=== PATIENT | female | born 1960 | race Caucasian/White ===

== ENCOUNTER → 2017-10-01 08:03 | Outpatient (CLI) | payer OTHER, SELFPAY ==
--- NOTE | 2017-10-01 | DI.MG.S_ITS ---
BILATERAL DIGITAL SCREENING MAMMOGRAM 3D/2D WITH CAD: 10/01/2017 CLINICAL: Routine screening. Family history of breast cancer. Comparison is made to exams dated: 09/28/2016 mammogram, 09/11/2016 mammogram - [facility], and 09/09/2014 mammogram - [facility]. The tissue of both breasts is heterogeneously dense. This may lower the sensitivity of mammography. Current study was also evaluated with a Computer Aided Detection (CAD) system. There are benign calcifications in the left breast. There also are biopsy clips in the left breast. No significant masses, calcifications, or other findings are seen in either breast. There has been no significant interval change. IMPRESSION: BENIGN There is no mammographic evidence of malignancy. A 1 year screening mammogram is recommended. This exam was interpreted at Station ID: [id number]. NOTE: For mammograms, a report in lay terms will be sent to the patient. Approximately 15% of breast malignancies will not be visualized mammographically. In the management of a palpable breast mass, a negative mammogram must not discourage biopsy of a clinically suspicious lesion. Electronically Signed By: Vance mayer/lynn:10/01/2017 11:06:24 letter sent: Normal Exam ACR BI-RADS Category 2: Benign Finding(s) 3342F
== END ==
PROVIDERS: PCP Family Medicine; Visit Provider Family Medicine
DX: Z12.31 Encounter for screening mammogram for malignant neoplasm of breast (principal); Z80.3 Family history of malignant neoplasm of breast
CPT/HCPCS: 77063; 77067

== ENCOUNTER → 2018-05-09 13:40 | Outpatient (CLI) | payer OTHER, SELFPAY ==
--- NOTE | 2018-05-09 13:41 | DI.RAD.S_ITS ---
PROCEDURE: XR CHEST 2V INDICATIONS: Cough, SOB TECHNIQUE: 2 views of the chest were acquired. COMPARISON: None. FINDINGS: Surgical changes and devices: None. Lungs and pleura: Mild hyperinflation. Lungs are clear. No pleural effusions or pneumothorax. Mediastinum: Mediastinal contours are normal. Heart size is normal. Bones and chest wall: No suspicious bony abnormalities. Soft tissues appear unremarkable. IMPRESSION: Mild hyperinflation. No acute cardiopulmonary disease. Dictated by: Tyree Adhikari M.D. on 05/09/2018 at 14:01 Approved by: Tyree Adhikari M.D. on 05/09/2018 at 14:02
== END ==
PROVIDERS: PCP Family Medicine; Visit Provider Registered Nurse
DX: R05 Cough (principal); R06.02 Shortness of breath
CPT/HCPCS: 71046; 87400

== ENCOUNTER → 2018-05-09 14:29 | Outpatient (CLI) | payer OTHER, SELFPAY | PROVIDERS: PCP Family Medicine; Visit Provider Registered Nurse | DX: R50.9 Fever, unspecified (principal) | CPT/HCPCS: 87400 ==

== ENCOUNTER → 2018-05-30 11:18 | Outpatient (CLI) | payer OTHER, SELFPAY ==
[2018-05-30 12:50] LABS: Thyroid Stimulating Hormone 0.88 uIU/mL (0.47-4.68)
== END ==
PROVIDERS: PCP Family Medicine; Visit Provider Family Medicine
DX: E03.9 Hypothyroidism, unspecified (principal)
CPT/HCPCS: 36415; 84443

== ENCOUNTER → 2018-10-04 08:43 | Outpatient (CLI) | payer OTHER, SELFPAY ==
--- NOTE | 2018-10-04 | DI.MG.S_ITS ---
BILATERAL DIGITAL SCREENING MAMMOGRAM 3D/2D WITH CAD: 10/04/2018 CLINICAL: Routine screening. Family history of breast cancer. Comparison is made to exams dated: 10/01/2017 mammogram - [facility], 10/27/2016 specimen, 10/27/2016 stereotactic biopsy - [facility], 09/28/2016 mammogram, 09/11/2016 mammogram - [facility], and 09/09/2014 mammogram - [facility]. The tissue of both breasts is extremely dense, which lowers the sensitivity of mammography. Current study was also evaluated with a Computer Aided Detection (CAD) system. There are redemonstrated biopsy clips in the left breast (with prior biopsy results being benign per chart review), with associated previously biopsied calcifications of the left breast. No significant masses, calcifications, or other findings are seen in either breast. IMPRESSION: There is no mammographic evidence of malignancy. A 1 year screening mammogram is recommended. This exam was interpreted at Station ID: [id number]. NOTE: For mammograms, a report in lay terms will be sent to the patient. Approximately 15% of breast malignancies will not be visualized mammographically. In the management of a palpable breast mass, a negative mammogram must not discourage biopsy of a clinically suspicious lesion. Electronically Signed By: Harjinder Calderon M.D. ecl/:10/04/2018 13:03:32 letter sent: Normal Exam ACR BI-RADS Category 2: Benign Finding(s) 3342F
== END ==
PROVIDERS: PCP Family Medicine; Visit Provider Family Medicine
DX: Z12.31 Encounter for screening mammogram for malignant neoplasm of breast (principal); Z80.3 Family history of malignant neoplasm of breast
CPT/HCPCS: 77063; 77067

== ENCOUNTER → 2019-05-28 06:57 | Outpatient (CLI) | payer OTHER, SELFPAY ==
[2019-05-28 08:23] LABS: Alanine Aminotransferase 32 IU/L (<35); Albumin 4.5 g/dL (3.5-5.0); Albumin Globulin Ratio 1.6 (1.0-2.8); Alkaline Phosphatase 64 U/L (38-126); Aspartate Aminotransferase 33 IU/L (14-36); Bilirubin Total 0.4 mg/dL (0.2-1.3); Blood Urea Nitrogen 15 mg/dL (7-17); Calcium 9.6 mg/dL (8.4-10.2); Carbon Dioxide 28 mmol/L (22-32); Chloride 104 mmol/L (98-107); Cholesterol 185 mg/dL (140-199); Estimated Glomerular Filt Rate > 60.0 mL/min (>60); Globulin 2.8 g/dL (1.7-4.1); Glucose 103 mg/dL (70-100); HDL Cholesterol 78 mg/dL (40-60); HEMOLYSIS < 15 (0-50); LDL Cholesterol Calculated 88 mg/dL (<100); Potassium 4.3 mmol/L (3.4-5.1); Sodium 141 mmol/L (137-145); Total Protein 7.3 g/dL (6.3-8.2); Triglycerides 94 mg/dL (35-150)
[2019-05-28 08:55] LABS: Vitamin D 25 Hydroxy (D3) 24.4 ng/mL (30.0-100.0)
[2019-05-28 09:03] LABS: Thyroid Stimulating Hormone 4.35 uIU/mL (0.47-4.68)
== END ==
PROVIDERS: PCP Family Medicine; Referring Provider Family Medicine; Visit Provider Family Medicine
DX: Z13.220 Encounter for screening for lipoid disorders (principal); E03.9 Hypothyroidism, unspecified; R79.89 Other specified abnormal findings of blood chemistry; E55.9 Vitamin D deficiency, unspecified
CPT/HCPCS: 36415; 80053; 80061; 82306; 84443

== ENCOUNTER → 2019-07-12 15:04 | Outpatient (CLI) | payer OTHER, SELFPAY | PROVIDERS: PCP Family Medicine; Visit Provider Nurse Practitioner | DX: R30.0 Dysuria (principal) | CPT/HCPCS: 87077; 87086; 87186 ==

== ENCOUNTER → 2019-07-19 14:14 | Outpatient (CLI) | payer OTHER, SELFPAY ==
[2019-07-19 15:48] LABS: Influenza A - CEPHEID Flu A NEGATIVE (NEGATIVE); Influenza B - CEPHEID Flu B NEGATIVE (NEGATIVE)
[2019-07-21 03:36] LABS: COVID19 Sendout Not Detected (Not Detected)
== END ==
PROVIDERS: PCP Family Medicine; Visit Provider Registered Nurse
DX: R05 Cough (principal); Z20.828 Contact with and (suspected) exposure to other viral communicable diseases; R50.9 Fever, unspecified
CPT/HCPCS: 87502; 87635

== ENCOUNTER → 2019-10-22 10:55 | Outpatient (CLI) | payer OTHER, SELFPAY ==
--- NOTE | 2019-10-22 | DI.MG.S_ITS ---
BILATERAL DIGITAL SCREENING MAMMOGRAM 3D/2D WITH CAD: 10/22/2019 CLINICAL: Routine screening. Family history of breast cancer. Comparison is made to exams dated: 10/04/2018 mammogram, 10/01/2017 mammogram, 09/11/2016 mammogram - [facility], and 09/09/2014 mammogram - [facility]. The tissue of both breasts is extremely dense, which lowers the sensitivity of mammography. Current study was also evaluated with a Computer Aided Detection (CAD) system. There are benign calcifications in the left breast. There also are biopsy clips in the left breast. No significant masses, calcifications, or other findings are seen in either breast. There has been no significant interval change. IMPRESSION: There is no mammographic evidence of malignancy. A 1 year screening mammogram is recommended. This exam was interpreted at Station ID: [id number]. NOTE: For mammograms, a report in lay terms will be sent to the patient. Approximately 15% of breast malignancies will not be visualized mammographically. In the management of a palpable breast mass, a negative mammogram must not discourage biopsy of a clinically suspicious lesion. Electronically Signed By: Miranda jain/lynn:10/22/2019 16:31:23 letter sent: Normal Exam ACR BI-RADS Category 2: Benign Finding(s) 3342F
== END ==
PROVIDERS: PCP Family Medicine; Referring Provider Family Medicine; Visit Provider Family Medicine
DX: Z12.31 Encounter for screening mammogram for malignant neoplasm of breast (principal); Z80.3 Family history of malignant neoplasm of breast
CPT/HCPCS: 77063; 77067

== ENCOUNTER → 2019-12-22 09:12 | Outpatient (CLI) | payer OTHER, SELFPAY | PROVIDERS: PCP Family Medicine; Visit Provider Nurse Practitioner | DX: R30.0 Dysuria (principal) | CPT/HCPCS: 87077; 87086; 87186 ==

== ENCOUNTER → 2020-04-15 14:31 | Outpatient (CLI) | payer OTHER, SELFPAY ==
[2020-04-15] MEDS: COVID-19 VACC(MODERNA-1)/PF 100 MCG/0.5 ML VIAL IM (14:36)
== END ==
PROVIDERS: PCP Family Medicine; Visit Provider Internal Medicine
DX: Z23 Encounter for immunization (principal)
CPT/HCPCS: 0011A; 91301

== ENCOUNTER → 2020-05-12 13:16 | Outpatient (CLI) | payer OTHER, SELFPAY ==
[2020-05-12] MEDS: COVID-19 VACC #2, MRNA(MOD) 100 MCG/0.5 ML VIAL IM (13:24)
== END ==
PROVIDERS: PCP Family Medicine; Visit Provider Internal Medicine
DX: Z23 Encounter for immunization (principal)
CPT/HCPCS: 0012A; 91301

== ENCOUNTER → 2020-07-28 11:30 | Outpatient (CLI) | payer OTHER, SELFPAY ==
[2020-07-28 12:14] LABS: Appearance Urine UA CLEAR; Bilirubin Urine UA NEGATIVE (NEGATIVE); Color Urine UA YELLOW; Glucose Urine UA NEGATIVE (Negative); Ketones Urine UA NEGATIVE (NEGATIVE); Leukocyte Esterase Urine UA 2+ (NEGATIVE); Nitrite Urine UA NEGATIVE (Negative); Occult Blood Urine UA 3+ (Negative); Protein Urine UA NEGATIVE (Negative); Specific Gravity Urine UA 1.015 (1.000-1.035); Urobilinogen Urine UA 0.2 E.U./dL (0.2)
[2020-07-28 12:20] LABS: Bacteria Urine Moderate (10-30); Culture Indicated Urine Specimen Cultured; RBC Urine 30-100/HPF (0-5/HPF); WBC Urine 10-30/HPF (0-5/HPF)
== END ==
PROVIDERS: PCP Family Medicine; Referring Provider Family Medicine; Visit Provider Family Medicine
DX: R30.0 Dysuria (principal); R35.0 Frequency of micturition
CPT/HCPCS: 81001; 87086

== ENCOUNTER → 2020-11-24 10:11 | Outpatient (CLI) | payer OTHER, SELFPAY ==
[2020-11-24 12:45] LABS: Thyroid Stimulating Hormone 1.36 uIU/mL (0.47-4.68)
== END ==
PROVIDERS: PCP Family Medicine; Referring Provider Family Medicine; Visit Provider Family Medicine
DX: E03.9 Hypothyroidism, unspecified (principal)
CPT/HCPCS: 36415; 84443

== ENCOUNTER → 2020-12-01 07:15 | Outpatient (CLI) | payer OTHER, SELFPAY ==
--- NOTE | 2020-12-01 07:16 | DI.US.S_ITS ---
PROCEDURE: US THYROID INDICATIONS: THYROID ENLARGMENT TECHNIQUE: Real-time scanning was performed of the thyroid gland, with image documentation. COMPARISON: None. FINDINGS: Right: Thyroid lobe measures 3.4 x 1.5 x 1.2 cm, and is homogeneous in echotexture. Left: Thyroid lobe measures 3.0 x 1.1 x 1.1 cm, and is homogenous in echotexture. Isthmus: 1.1 mm thick. IMPRESSION: Normal size thyroid without dominant nodule. ACR TI-RADS definitions and recommendations: TI-RADS 1 (benign): 0 points. FNA not needed. TI-RADS 2 (not suspicious): 2 points. FNA not needed. TI-RADS 3 (mildly suspicious): 3 points. * FNA if 2.5 cm or larger, follow up if 1.5 cm or larger (at 1, 3, and 5 years). TI-RADS 4 (moderately suspicious): 4-6 points. * FNA if 1.5 cm or larger, follow up if 1 cm or larger (at 1, 2, 3, and 5 years). TI-RADS 5 (highly suspicious): 7 points or more. * FNA if 1 cm or larger, follow up if 0.5 cm or larger (every year for 5 years). Dictated by: Miranda Lucas M.D. on 12/01/2020 at 10:25 Approved by: Miranda Lucas M.D. on 12/01/2020 at 10:26
== END ==
PROVIDERS: PCP Family Medicine; Referring Provider Family Medicine; Visit Provider Family Medicine
DX: E04.9 Nontoxic goiter, unspecified (principal)
CPT/HCPCS: 76536

== ENCOUNTER → 2020-12-30 17:12 | Outpatient (CLI) | payer OTHER, SELFPAY ==
--- NOTE | 2020-12-30 | DI.MG.S_ITS ---
BILATERAL DIGITAL SCREENING MAMMOGRAM 3D/2D WITH CAD: 12/30/2020 CLINICAL: Routine screening. Family history of breast cancer. Comparison is made to exams dated: 10/22/2019 mammogram, 10/04/2018 mammogram, and 10/01/2017 mammogram - [facility]. The tissue of both breasts is heterogeneously dense. This may lower the sensitivity of mammography. Current study was also evaluated with a Computer Aided Detection (CAD) system. There are benign calcifications in the left breast. There also are biopsy clips in the left breast. No significant masses, calcifications, or other findings are seen in either breast. There has been no significant interval change. IMPRESSION: BENIGN There is no mammographic evidence of malignancy. A 1 year screening mammogram is recommended. This exam was interpreted at Station ID: [id number]. NOTE: For mammograms, a report in lay terms will be sent to the patient. Approximately 15% of breast malignancies will not be visualized mammographically. In the management of a palpable breast mass, a negative mammogram must not discourage biopsy of a clinically suspicious lesion. Electronically Signed By: Miranda jain/lynn:12/31/2020 08:54:37 letter sent: Normal Exam ACR BI-RADS Category 2: Benign Finding(s) 3342F
== END ==
PROVIDERS: PCP Family Medicine; Referring Provider Family Medicine; Visit Provider Family Medicine
DX: Z12.31 Encounter for screening mammogram for malignant neoplasm of breast (principal)
CPT/HCPCS: 77063; 77067

== ENCOUNTER → 2021-02-16 18:30 | Outpatient (CLI) | payer OTHER, SELFPAY | PROVIDERS: PCP Family Medicine; Referring Provider Internal Medicine; Visit Provider Internal Medicine | DX: Z23 Encounter for immunization (principal) | CPT/HCPCS: 90471; 90686 ==

== ENCOUNTER → 2021-02-25 14:49 | Outpatient (CLI) | payer OTHER, SELFPAY ==
[2021-02-25] MEDS: COVID-19 VACC #3, MRNA(MOD) 50 MCG/0.25 ML VIAL IM (14:58)
== END ==
PROVIDERS: PCP Family Medicine; Visit Provider Internal Medicine
DX: Z23 Encounter for immunization (principal)
CPT/HCPCS: 0013A; 91301

== ENCOUNTER → 2021-04-10 14:50 | Outpatient (CLI) | payer OTHER, SELFPAY | PROVIDERS: PCP Family Medicine; Visit Provider Physician Assistant | DX: R30.0 Dysuria (principal) | CPT/HCPCS: 87077; 87086; 87186 ==

== ENCOUNTER → 2021-08-26 16:09 | Outpatient (CLI) | payer OTHER, SELFPAY ==
[2021-08-26 18:14] LABS: TSH w/ Reflex to FT4 1.96 uIU/mL (0.47-4.68)
== END ==
PROVIDERS: PCP Family Medicine; Referring Provider Family Medicine; Visit Provider Family Medicine
DX: E03.9 Hypothyroidism, unspecified (principal)
CPT/HCPCS: 36415; 84443

== ENCOUNTER → 2021-09-09 13:29 | Outpatient (CLI) | payer OTHER, SELFPAY ==
[2021-09-09 14:07] LABS: Appearance Urine UA CLOUDY; Bilirubin Urine UA NEGATIVE (NEGATIVE); Color Urine UA YELLOW; Glucose Urine UA NEGATIVE (Negative); Ketones Urine UA NEGATIVE (NEGATIVE); Leukocyte Esterase Urine UA 2+ (NEGATIVE); Nitrite Urine UA NEGATIVE (Negative); Occult Blood Urine UA 3+ (Negative); Protein Urine UA 2+ (Negative); Urobilinogen Urine UA 0.2 E.U./dL (0.2)
[2021-09-09 14:18] LABS: Bacteria Urine None Seen; RBC Urine >100/HPF (0-5/HPF); WBC Urine 30-100/HPF (0-5/HPF)
[2021-09-09 14:19] LABS: Culture Indicated Urine Specimen Cultured
== END ==
PROVIDERS: PCP Family Medicine; Referring Provider Family Medicine; Visit Provider Family Medicine
DX: N30.01 Acute cystitis with hematuria (principal); R30.0 Dysuria
CPT/HCPCS: 81001; 87086

== ENCOUNTER → 2022-01-09 12:50 | Outpatient (CLI) | payer OTHER, SELFPAY ==
--- NOTE | 2022-01-09 | DI.MG.S_ITS ---
BILATERAL DIGITAL SCREENING MAMMOGRAM 3D/2D WITH CAD: 01/09/2022 CLINICAL: Routine screening. Family history of breast cancer. Comparison is made to exams dated: 12/30/2020 mammogram, 10/22/2019 mammogram, 10/04/2018 mammogram, 10/01/2017 mammogram, and 09/11/2016 mammogram - [facility]. Both breasts are heterogeneously dense, which may obscure small masses (category c / 51-75% glandular tissue). Current study was also evaluated with a Computer Aided Detection (CAD) system. There are benign calcifications in the left breast. There also are biopsy clips in the left breast. No significant masses, calcifications, or other findings are seen in either breast. There has been no significant interval change. IMPRESSION: BENIGN There is no mammographic evidence of malignancy. A 1 year screening mammogram is recommended. Based on the Tyrer Cuzick model (a risk assessment model) the patient's lifetime risk is 11.9% and her 10 year risk is 4.7%. According to the ACR, ACS, and NCCN guidelines, an annual breast MRI exam along with mammogram is recommended if the patient's lifetime risk is 20% or greater. This exam was interpreted at Station ID: [id number]. NOTE: For mammograms, a report in lay terms will be sent to the patient. Approximately 15% of breast malignancies will not be visualized mammographically. In the management of a palpable breast mass, a negative mammogram must not discourage biopsy of a clinically suspicious lesion. Electronically Signed By: Max herrera/lynn:01/09/2022 13:15:22 letter sent: Normal Exam ACR BI-RADS Category 2: Benign Finding(s) 3342F
== END ==
PROVIDERS: PCP Family Medicine; Referring Provider Family Medicine; Visit Provider Family Medicine
DX: Z12.31 Encounter for screening mammogram for malignant neoplasm of breast (principal); Z80.3 Family history of malignant neoplasm of breast
CPT/HCPCS: 77063; 77067

== ENCOUNTER → 2022-10-23 15:12 | Outpatient (CLI) | payer OTHER, SELFPAY ==
--- NOTE | 2022-10-23 15:13 | DI.NM.S_ITS ---
PROCEDURE: NM EXERCISE TREADMILL NON NUC COMPARISON: None. INDICATIONS: stress test for palpitations FINDINGS: The patient exercised for 10 minutes and 5 seconds reaching 10.1 METS, SAUL -47%, 93% of maximum predicted heart rate. Appropriate BP response to exercise. No angina and no diagnostic ST changes during exercise or recovery. Frequent PVCs during peak exercise. IMPRESSION: Low risk, normal treadmill ECG only stress test from inducible ischemia standpoint. Excellent exercise capacity (SAUL -47%). Frequent PVCs during peak exercise. Dictated by: Saurabh Castillo MD on 10/24/2022 at 13:10 Approved by: Saurabh Castillo MD on 10/24/2022 at 13:13
== END ==
PROVIDERS: PCP Family Medicine; Referring Provider Family Medicine; Visit Provider Family Medicine
DX: Z82.49 Family history of ischemic heart disease and other diseases of the circulatory system (principal); R00.2 Palpitations
CPT/HCPCS: 93017

== ENCOUNTER → 2023-01-22 11:48 | Outpatient (CLI) | payer OTHER, SELFPAY ==
--- NOTE | 2023-01-22 | DI.MG.S_ITS ---
BILATERAL DIGITAL SCREENING MAMMOGRAM 3D/2D WITH CAD: 01/22/2023 CLINICAL: Routine screening. Family history of breast cancer. Comparison is made to exams dated: 01/09/2022 mammogram, 12/30/2020 mammogram, and 10/22/2019 mammogram - [facility]. Both breasts are heterogeneously dense, which may obscure small masses (category c / 51-75% glandular tissue). Current study was also evaluated with a Computer Aided Detection (CAD) system. There are biopsy clips in the left breast. No significant masses, calcifications, or other findings are seen in either breast. IMPRESSION: BENIGN There is no mammographic evidence of malignancy. A 1 year screening mammogram is recommended. Based on the Tyrer Cuzick model (a risk assessment model) the patient's lifetime risk is 11.7% and her 10 year risk is 4.8%. According to the ACR, ACS, and NCCN guidelines, an annual breast MRI exam along with mammogram is recommended if the patient's lifetime risk is 20% or greater. This exam was interpreted at Station ID: [id number]. NOTE: For mammograms, a report in lay terms will be sent to the patient. Approximately 15% of breast malignancies will not be visualized mammographically. In the management of a palpable breast mass, a negative mammogram must not discourage biopsy of a clinically suspicious lesion. Electronically Signed By: Tiffanie abbott/lynn:01/23/2023 00:09:23 letter sent: Normal Exam ACR BI-RADS Category 2: Benign Finding(s) 3342F
== END ==
PROVIDERS: PCP Family Medicine; Referring Provider Family Medicine; Visit Provider Family Medicine
DX: Z12.31 Encounter for screening mammogram for malignant neoplasm of breast (principal); Z80.3 Family history of malignant neoplasm of breast
CPT/HCPCS: 77063; 77067

== ENCOUNTER → 2023-01-23 12:28 | Outpatient (CLI) | payer OTHER, SELFPAY ==
[2023-01-23 13:51] LABS: TSH w/ Reflex to FT4 0.82 uIU/mL (0.47-4.68)
== END ==
PROVIDERS: PCP Family Medicine; Referring Provider Family Medicine; Visit Provider Family Medicine
DX: E03.9 Hypothyroidism, unspecified (principal)
CPT/HCPCS: 36415; 84443

== ENCOUNTER → 2023-11-27 07:56 | Outpatient (CLI) | payer OTHER, SELFPAY ==
--- NOTE | 2023-11-27 07:57 | DI.RAD.S_ITS ---
PROCEDURE: XR CERVICAL SPINE 2V OR 3V INDICATIONS: cervical pain, not improved with physical therapy TECHNIQUE: 3 view(s) of the cervical spine were acquired. COMPARISON: None. FINDINGS: Bones: No fractures or dislocations to the T1 level. The lateral masses of C1 appear intact on the odontoid view. No suspicious bony lesions. Soft tissues: No prevertebral soft tissue swelling. IMPRESSION: No displaced fracture or traumatic subluxation. Dictated by: John Ng M.D. on 11/27/2023 at 12:25 Approved by: John Ng M.D. on 11/27/2023 at 12:26
[2023-11-27 10:16] LABS: Cholesterol 168 mg/dL (140-199); Glucose 93 mg/dL (80-110); HDL Cholesterol 82 mg/dL (40-60); LDL Cholesterol Calculated 66 mg/dL (<100); Triglycerides 102 mg/dL (35-150)
[2023-11-27 10:48] LABS: Thyroid Stimulating Hormone 2.09 uIU/mL (0.47-4.68)
== END ==
PROVIDERS: Family Provider Family Medicine; PCP Family Medicine; Referring Provider Family Medicine; Visit Provider Family Medicine
DX: M54.2 Cervicalgia (principal); Z13.220 Encounter for screening for lipoid disorders; E03.9 Hypothyroidism, unspecified; Z13.1 Encounter for screening for diabetes mellitus
CPT/HCPCS: 36415; 72040; 80061; 82947; 84443

== ENCOUNTER 2023-12-26 09:45 | Outpatient (RCR) | payer OTHER, SELFPAY ==
--- NOTE | 2023-09-11 17:52 | PT.OIE ---
Addendum entered and electronically signed by Anjali Hamilton PT 09/16/23 15:37: PT direct supervision and direction to student PT Michael Quinones throughout session Original Note: Current Diagnoses Cervicalgia (09/11/23) Paresthesia of skin (09/11/23) Past Medical History (Last Reviewed 04/10/21 @ 18:05 by Bonita Rahman PA-C) Basal cell carcinoma (BCC) of right cheek (~1995) DDD (degenerative disc disease), cervical Hypothyroidism Lumbar spine pain (2012) Past Surgical History (Last Updated 07/31/23 @ 16:31 by Bonita Hood LPN) Anesthesia History of basal cell carcinoma (BCC) excision (~1995) Visit Care Team Role Provider Type Anjali Dawson MD Attending Provider Physician Family Provider Primary Care Provider Referring Provider Specialty: Family Practice Address: [address] [place] [address], [facility] Email: [email or web address] Physical Therapy Initial Evaluation PT-OP-A Visit Information Start: 09/05/23 17:32 Freq: Status: Active Protocol: Document 09/11/23 08:17 ALECIA (Rec: 09/11/23 17:23 ALECIA [id number]) Out-Patient Physical Therapy Visit Information Visit Information Visit Type Initial Evaluation Visit Start Time 08:17 Visit Stop Time 09:01 Visit Number 1/6 Number of NARROW GAUGE ENGINEER Visits 0 Evaluation Information Evaluation Date 09/11/23 PT-OP-B Current Condition Start: 09/05/23 17:32 Freq: Status: Active Protocol: Document 09/11/23 08:17 JJaime (Rec: 09/11/23 17:23 ALECIA [id number]) Current Condition History of Current Condition Onset Date June 2023 Current Complaints Neck pain, R UE tingling and JENSEN History of Current Condition She has a history of whiplash from falls and she has hit her head in the past with no reported concussions. She is a reported belly sleeper and has been having more issues with JENSEN recently due to her increased neck pain. Shes also reports tingiling in the Ulnar nerve. She does not stop herself from doing activites even with pain. She has stopped working out due to pain and being busy. She belivied that the pain started in June when she slept on it wrong and later helped her friend with yard work and the pain became unbearable. She uses tylonol and ibuprofen. The medication only provides short term relief. Treatment Goals Patient/Caregiver Goals Reduce neck pain and return to funtional activities Prior Functional Status Baseline Function- ADL's Independent Baseline Function- Mobility Independent Baseline Function- Other Independant with all functional activities PT-OP-C Subjective Start: 09/05/23 17:32 Freq: Status: Active Protocol: Document 09/11/23 08:17 JG (Rec: 09/11/23 12:13 Dany [id number]) Patient Questionnaires Neck Disability Index NDI Score 22% Quick Dash- Upper Extremity Quick Dash UE Score 16% OP-PT Pain Assessment Location neck Pain Location Details Pain located around upper and lower neck with pain radiating into R>L Scale Used Numeric (0 - 10) Description Aching,Burning,Pinching,Sharp, Shooting,With Movement Frequency Daily Pain Duration Pain comes on with spacific activities and goes away with stopping activity Radiating Location Down both arms R>L Pain Aggravating Factors Changing Position,ADL's, Activity,Exercise Other Pain Aggravating Factors Throracic or cervical twisting Pain Alleviating Factors Medication Patient Stated Pain Goal Pt wants to reduce pain in the neck PT-OP-J Posture/Palpation/Skin Start: 09/05/23 17:32 Freq: Status: Active Protocol: Document 09/11/23 08:17 JG (Rec: 09/11/23 17:23 Dany [id number]) Posture Evaluation Position Standing Evaluation View Anterior Head/C-Spine Posture Flexed,Rotated Left T-Spine Posture Rotation Left,Increased Kyphosis Thorax Posture Neutral L-Spine Posture Neutral Scapula Posture (L) Winged,(R) Winged Palpation Assessment Location Cervical Palpation Location L Trapizius and R scalenes Palpation Findings Soft Tissue Tightness, Tenderness Palpation Details L>R was more tender and elevated Skin Assessment Other Assessments Skin Assessment Comments Sensation WNL B PT-OP-K Range of Motion Start: 09/05/23 17:32 Freq: Status: Active Protocol: Document 09/11/23 08:17 JG (Rec: 09/11/23 17:23 J [id number]) Cervical Spine Range of Motion Cervical Spine Active Testing Position Sitting Flexion 50 Extension 40 Rotation Left 30 Rotation Right 21 Lateral Flexion Left 30 Lateral Flexion Right 21 ROM Limitations Pain Comments Pain going down R side spine/ UE during testing PT-OP-L Special Tests Start: 09/05/23 17:32 Freq: Status: Active Protocol: Document 09/11/23 08:17 JG (Rec: 09/11/23 17:23 JG [id number]) Special Tests Cervical Spine Special Tests Vertebral Artery Test Results Postional screen negative Comments Auscultation of the heart and carotid Compression/distraction Test Results Test positive with inc pain with compression and dec pain with distraction PT-OP-Q Treatments Start: 09/05/23 17:32 Freq: Status: Active Protocol: Document 09/11/23 08:17 JG (Rec: 09/11/23 17:23 JG [id number]) Therapeutic Exercises Sitting Exercises Cervical isometrics Sitting Exercise Name iso holds in flexion, ext and side bending Side bilateral Resistance hand Reps/Minutes 5 holdx10 ea PT-OP-T Assessment and Plan Start: 09/05/23 17:32 Freq: Status: Active Protocol: Document 09/11/23 08:17 JG (Rec: 09/11/23 17:23 JG [id number]) Physical Therapy Assessment Rehab Potential Rehabilitation Potential Good Evaluation Complexity Number of Personal Factors/Comorbidities 1-2 Number of Body Systems Impaired 4 or More Clinical Presentation at Evaluation Evolving Impairments Impairments Activity Tolerance,Functional Activities,Pain,Posture,ROM, Sensation,Soft Tissue Mobility Other Concerns Barriers to Rehabilitation Insurance has limited visits that may lmpede recovery Goals ADL Short Term Goal (STG) Pt will be able to sleep through the night w/o waking up STG Duration 10/09/2023 Nursing Home Goal (LTG) Pt will be able to perform all ADL's with no greater then 2/ 10 neck pain LTG Duration 12/05/2023 Functional ability Short Term Goal (STG) Pt will dec Neck & Shoulder disability index score from a 11/50 to a 6/50 to facilitate integration of ADL STG Duration 10/09/2023 Corporate Physical Security Supervisor Goal (LTG) Pt will dec Neck & Shoulder disability index score from a 11/50 to a 0/50 to integrate ADL's back into daily routine LTG Duration 12/05/2023 ROM Short Term Goal (STG) Pt will be able to inc cervical ROM to 45 deg of motion B w/o inc in pain STG Duration 10/09/2023 Nursing Home Goal (LTG) Pt will inc cervical ROM to 70 deg of motion B w/o inc in pain in order to drive safely LTG Duration 12/05/2023 Assessment Summary Assessment Pt is a 63 y/o female that presents to PT with cervical pain and parastegia that occured after she slept on it wrong back in June. She mentioned it normally goes away but this one is different and is lingering and is only getting worse as time goes on. She has numbness and tingleing down both arms but states that it is worse on her R side. She has been unable to perform her yard work or her normal exercises due to the pain she is experiencing. She has pain that is normally a 2/10 but can jump to a 10/10 with certain quick movements and reports that the pain comes on and goes away immediatly. She has been taking tylonol and ibuprofen for the pain which does help the neck pain. She has a history of whiplash and she has hit her head in the past with no reported concussions. She is a reported belly sleeper and has been having more issues with JENSEN recently due to her increased neck pain . Pt will benefit from skilled physical therapy in order to reduce pain, numbness and improve ADL's Physical Therapy Plan Frequency and Duration Frequency of Treatment 1x/Week Duration of treatment (weeks) 12 Plan of Care Start Date 09/11/23 Plan of Care End Date 12/05/23 Therapeutic Interventions Therapeutic Interventions Home Exercise Program,Joint Mobilizations,Manual Therapy, Neuromuscular Re-education, Self-Care/Home Management,Soft Tissue Mobilization,Taping, Therapeutic Activities, Therapeutic Exercises Modalities Biofeedback,Cold Pack/Ice Massage,Electric Stimulation, Traction- Mechanical Next Visit Focus/Plan Next Note Type Treatment Note Next Visit Plan Review HEP, add to HEP: open book, t-spine stretches, chin tucks, craniocervical flexion test, Ball I, T, and Y's Manual therapy: STM L trap and R scalenes, work on scap tightness Nerve tesnsion test, cable close assistant mechanic pulldownsc
--- NOTE | 2023-09-11 17:57 | PT.OPPOC ---
Physical, Occupational & Speech Therapy At [facility] Current Diagnoses Cervicalgia (09/11/23) Paresthesia of skin (09/11/23) Visit Care Team Role Provider Type Anjali Dawson MD Attending Provider Physician Family Provider Primary Care Provider Referring Provider Specialty: Family Practice Address: [address] [place] [address], [id number] Email: [email or web address] Plan Of Care PT-OP-T Assessment and Plan Start: 09/05/23 17:32 Freq: Status: Active Protocol: Document 09/11/23 08:17 ALECIA (Rec: 09/11/23 17:23 ALECIA [id number]) Physical Therapy Assessment Rehab Potential Rehabilitation Potential Good Evaluation Complexity Number of Personal Factors/Comorbidities 1-2 Number of Body Systems Impaired 4 or More Clinical Presentation at Evaluation Evolving Impairments Impairments Activity Tolerance,Functional Activities,Pain,Posture,ROM, Sensation,Soft Tissue Mobility Other Concerns Barriers to Rehabilitation Insurance has limited visits that may lmpede recovery Goals ADL Short Term Goal (STG) Pt will be able to sleep through the night w/o waking up STG Duration 10/09/2023 Fdc Goal (LTG) Pt will be able to perform all ADL's with no greater then 2/ 10 neck pain LTG Duration 12/05/2023 Functional ability Short Term Goal (STG) Pt will dec Neck & Shoulder disability index score from a 11/50 to a 6/50 to facilitate integration of ADL STG Duration 10/09/2023 Broadcast Producer Goal (LTG) Pt will dec Neck & Shoulder disability index score from a 11/50 to a 0/50 to integrate ADL's back into daily routine LTG Duration 12/05/2023 ROM Short Term Goal (STG) Pt will be able to inc cervical ROM to 45 deg of motion B w/o inc in pain STG Duration 10/09/2023 Broadcast Producer Goal (LTG) Pt will inc cervical ROM to 70 deg of motion B w/o inc in pain in order to drive safely LTG Duration 12/05/2023 Assessment Summary Assessment Pt is a 63 y/o female that presents to PT with cervical pain and parastegia that occured after she slept on it wrong back in June. She mentioned it normally goes away but this one is different and is lingering and is only getting worse as time goes on. She has numbness and tingleing down both arms but states that it is worse on her R side. She has been unable to perform her yard work or her normal exercises due to the pain she is experiencing. She has pain that is normally a 2/10 but can jump to a 10/10 with certain quick movements and reports that the pain comes on and goes away immediatly. She has been taking tylonol and ibuprofen for the pain which does help the neck pain. She has a history of whiplash and she has hit her head in the past with no reported concussions. She is a reported belly sleeper and has been having more issues with JENSEN recently due to her increased neck pain . Pt will benefit from skilled physical therapy in order to reduce pain, numbness and improve ADL's Physical Therapy Plan Frequency and Duration Frequency of Treatment 1x/Week Duration of treatment (weeks) 12 Plan of Care Start Date 09/11/23 Plan of Care End Date 12/05/23 Therapeutic Interventions Therapeutic Interventions Home Exercise Program,Joint Mobilizations,Manual Therapy, Neuromuscular Re-education, Self-Care/Home Management,Soft Tissue Mobilization,Taping, Therapeutic Activities, Therapeutic Exercises Modalities Biofeedback,Cold Pack/Ice Massage,Electric Stimulation, Traction- Mechanical Next Visit Focus/Plan Next Note Type Treatment Note Next Visit Plan Review HEP, add to HEP: open book, t-spine stretches, chin tucks, craniocervical flexion test, Ball I, T, and Y's Manual therapy: STM L davi and R les, work on scap tightness Nerve tesnsion test, cable close certified registered nurse practitioner pulldownsc Plan of Care Dates Plan of Care Start Date 09/11/23 Plan of Care End Date 12/05/23 Electronically Signed by: Anjali Hamilton, PT 09/12/23 1184 If you are in agreement with this Plan of Care, please return a signed and dated copy. I have reviewed this Plan of Care and certify that the skilled therapy services above are required to meet the patient?s needs. Physician Signature Date Printed Name and Credentials Clinical Instructor Signature Printed Name and Credentials
--- NOTE | 2023-09-17 15:08 | PT.OTN ---
Current Diagnoses Cervicalgia (09/17/23) Paresthesia of skin (09/17/23) Physical Therapy Treatment Note PT-OP-A Visit Information Start: 09/05/23 17:32 Freq: Status: Active Protocol: Document 09/17/23 14:44 [facility] (Rec: 09/17/23 15:08 [facility] [id number]) Out-Patient Physical Therapy Visit Information Visit Information Visit Type Treatment Note Visit Start Time 08:20 Visit Stop Time 09:00 Visit Number 2/6 Number of DENTAL INSTRUCTOR Visits 0 PT-OP-B Current Condition Start: 09/05/23 17:32 Freq: Status: Active Protocol: Document 09/11/23 08:17 JG (Rec: 09/11/23 17:23 JG [id number]) Current Condition History of Current Condition Onset Date June 2023 Current Complaints Neck pain, R UE tingling and JENSEN History of Current Condition She has a history of whiplash from falls and she has hit her head in the past with no reported concussions. She is a reported belly sleeper and has been having more issues with JENSEN recently due to her increased neck pain. Shes also reports tingiling in the Ulnar nerve. She does not stop herself from doing activites even with pain. She has stopped working out due to pain and being busy. She belivied that the pain started in June when she slept on it wrong and later helped her friend with yard work and the pain became unbearable. She uses tylonol and ibuprofen. The medication only provides short term relief. Treatment Goals Patient/Caregiver Goals Reduce neck pain and return to funtional activities Prior Functional Status Baseline Function- ADL's Independent Baseline Function- Mobility Independent Baseline Function- Other Independant with all functional activities PT-OP-C Subjective Start: 09/05/23 17:32 Freq: Status: Active Protocol: Document 09/17/23 14:44 [facility] (Rec: 09/17/23 15:08 [facility] [id number]) OP-PT Subjective Patient Comments Patient Comments Pt reports she felt like isometrics were helpful. PT-OP-J Posture/Palpation/Skin Start: 09/05/23 17:32 Freq: Status: Active Protocol: Document 09/11/23 08:17 JG (Rec: 09/11/23 17:23 JG [id number]) Posture Evaluation Position Standing Evaluation View Anterior Head/C-Spine Posture Flexed,Rotated Left T-Spine Posture Rotation Left,Increased Kyphosis Thorax Posture Neutral L-Spine Posture Neutral Scapula Posture (L) Winged,(R) Winged Palpation Assessment Location Cervical Palpation Location L Trapizius and R scalenes Palpation Findings Soft Tissue Tightness, Tenderness Palpation Details L>R was more tender and elevated Skin Assessment Other Assessments Skin Assessment Comments Sensation WNL B PT-OP-K Range of Motion Start: 09/05/23 17:32 Freq: Status: Active Protocol: Document 09/11/23 08:17 JG (Rec: 09/11/23 17:23 JG [id number]) Cervical Spine Range of Motion Cervical Spine Active Testing Position Sitting Flexion 50 Extension 40 Rotation Left 30 Rotation Right 21 Lateral Flexion Left 30 Lateral Flexion Right 21 ROM Limitations Pain Comments Pain going down R side spine/ UE during testing PT-OP-L Special Tests Start: 09/05/23 17:32 Freq: Status: Active Protocol: Document 09/11/23 08:17 JG (Rec: 09/11/23 17:23 JG [id number]) Special Tests Cervical Spine Special Tests Vertebral Artery Test Results Postional screen negative Comments Auscultation of the heart and carotid Compression/distraction Test Results Test positive with inc pain with compression and dec pain with distraction PT-OP-Q Treatments Start: 09/05/23 17:32 Freq: Status: Active Protocol: Document 09/17/23 14:44 [facility] (Rec: 09/17/23 15:08 [facility] [id number]) Therapeutic Exercises Supine Exercises breathing Supine Exercise Name hooklying w/PT pressure to abdomen then pt have 1 hand on abdomen& 1chest Reps/Minutes 5 min total Comments cues for inc belly breath for diaphragmatic breathing Sidelying Exercises open book Side bilateral Reps/Minutes 8 Comments cues for tspine rot and to rot w/neck also comfortable range Sitting Exercises chin tuck Reps/Minutes 10 Comments cues for elongate post neck and tuck chin Cervical isometrics Sitting Exercise Name iso holds in flexion, ext and side bending Side bilateral Resistance hand Reps/Minutes 5 holdx2 ea Manual Therapy Treatment Soft Tissue Mobilization superior Body Location R UT Mobilization Type Sustained Pressure Intensity/Depth Moderate Body Position Sitting Comments w/rot ant Body Location R >L SCM & scalenes Mobilization Type Rolling,Sustained Pressure Intensity/Depth Moderate medial Body Location R rhomboids, traps, tspine paraspinals Mobilization Type Rolling Intensity/Depth Moderate Body Position Sidelying Joint Mobilizations ribs Comments rib 1 caudal FM rib 6 external torsion FM s/l T spine Comments PA T1-3 FM and transverse R T1 and 3 FM PT-OP-T Assessment and Plan Start: 09/05/23 17:32 Freq: Status: Active Protocol: Document 09/17/23 14:44 [facility] (Rec: 09/17/23 15:08 [facility] [id number]) Physical Therapy Assessment Goals ADL Short Term Goal (STG) Pt will be able to sleep through the night w/o waking up STG Duration 10/09/2023 Health Safety Specialist Goal (LTG) Pt will be able to perform all ADL's with no greater then 2/ 10 neck pain LTG Duration 12/05/2023 Functional ability Short Term Goal (STG) Pt will dec Neck & Shoulder disability index score from a 11/50 to a 6/50 to facilitate integration of ADL STG Duration 10/09/2023 Senior Living Goal (LTG) Pt will dec Neck & Shoulder disability index score from a 11/50 to a 0/50 to integrate ADL's back into daily routine LTG Duration 12/05/2023 ROM Short Term Goal (STG) Pt will be able to inc cervical ROM to 45 deg of motion B w/o inc in pain STG Duration 10/09/2023 Health Safety Specialist Goal (LTG) Pt will inc cervical ROM to 70 deg of motion B w/o inc in pain in order to drive safely LTG Duration 12/05/2023 Assessment Summary Assessment Pt did well with exercises and required cues to be in slightly flex w/flex isometric vs being in ext. No inc pain w/new exercises but pt has difficulty w/diaphragmatic breathing so started w/belly breathing component today. Pt had improved rot w/manual. Signficaint tenderss in R scap region which causes radiation down UE and likely related to this. Physical Therapy Plan Frequency and Duration Frequency of Treatment 1x/Week Duration of treatment (weeks) 12 Plan of Care Start Date 09/11/23 Plan of Care End Date 12/05/23 Next Visit Focus/Plan Next Note Type Treatment Note Next Visit Plan review exercises; ball Is,Ts, Ys/ scap and postural strengthening Manual; work on ability for R scap dep, ribcage mobility, B cervical tightness, SO
--- NOTE | 2023-09-25 08:58 | PT.OTN ---
Current Diagnoses Cervicalgia (09/25/23) Paresthesia of skin (09/25/23) Physical Therapy Treatment Note PT-OP-A Visit Information Start: 09/05/23 17:32 Freq: Status: Active Protocol: Document 09/25/23 08:18 SP (Rec: 09/25/23 09:03 SP [id number]) Out-Patient Physical Therapy Visit Information Visit Information Visit Type Treatment Note Visit Start Time 08:18 Visit Stop Time 08:58 Visit Number 3/6 Number of SPECIAL PROGRAMS DIRECTOR Visits 1 Evaluation Information Evaluation Date 09/11/23 PT-OP-B Current Condition Start: 09/05/23 17:32 Freq: Status: Active Protocol: Document 09/11/23 08:17 JG (Rec: 09/11/23 17:23 JG [id number]) Current Condition History of Current Condition Onset Date June 2023 Current Complaints Neck pain, R UE tingling and JENSEN History of Current Condition She has a history of whiplash from falls and she has hit her head in the past with no reported concussions. She is a reported belly sleeper and has been having more issues with JENSEN recently due to her increased neck pain. Shes also reports tingiling in the Ulnar nerve. She does not stop herself from doing activites even with pain. She has stopped working out due to pain and being busy. She belivied that the pain started in June when she slept on it wrong and later helped her friend with yard work and the pain became unbearable. She uses tylonol and ibuprofen. The medication only provides short term relief. Treatment Goals Patient/Caregiver Goals Reduce neck pain and return to funtional activities Prior Functional Status Baseline Function- ADL's Independent Baseline Function- Mobility Independent Baseline Function- Other Independant with all functional activities PT-OP-C Subjective Start: 09/05/23 17:32 Freq: Status: Active Protocol: Document 09/25/23 08:18 SP (Rec: 09/25/23 09:03 SP [id number]) OP-PT Subjective Patient Comments Patient Comments Pt reports neck stiff arrival, was little sore after last tx is also packing and moving boxes could have contributed to soreness. She reports having to hold head with her hand when gets up due to lack of strength in neck. PT-OP-J Posture/Palpation/Skin Start: 05/29/24 17:32 Freq: Status: Active Protocol: Document 09/11/23 08:17 JG (Rec: 09/11/23 17:23 JG [id number]) Posture Evaluation Position Standing Evaluation View Anterior Head/C-Spine Posture Flexed,Rotated Left T-Spine Posture Rotation Left,Increased Kyphosis Thorax Posture Neutral L-Spine Posture Neutral Scapula Posture (L) Winged,(R) Winged Palpation Assessment Location Cervical Palpation Location L Trapizius and R scalenes Palpation Findings Soft Tissue Tightness, Tenderness Palpation Details L>R was more tender and elevated Skin Assessment Other Assessments Skin Assessment Comments Sensation WNL B PT-OP-K Range of Motion Start: 09/05/23 17:32 Freq: Status: Active Protocol: Document 09/11/23 08:17 JG (Rec: 09/11/23 17:23 JG [id number]) Cervical Spine Range of Motion Cervical Spine Active Testing Position Sitting Flexion 50 Extension 40 Rotation Left 30 Rotation Right 21 Lateral Flexion Left 30 Lateral Flexion Right 21 ROM Limitations Pain Comments Pain going down R side spine/ UE during testing PT-OP-L Special Tests Start: 09/05/23 17:32 Freq: Status: Active Protocol: Document 09/11/23 08:17 JG (Rec: 09/11/23 17:23 JG [id number]) Special Tests Cervical Spine Special Tests Vertebral Artery Test Results Postional screen negative Comments Auscultation of the heart and carotid Compression/distraction Test Results Test positive with inc pain with compression and dec pain with distraction PT-OP-Q Treatments Start: 09/05/23 17:32 Freq: Status: Active Protocol: Document 09/25/23 08:18 SP (Rec: 09/25/23 09:03 SP [id number]) Therapeutic Exercises Supine Exercises cervical DNF & lift Supine Exercise Name added to HEP Equipment Used towel roll under head Reps/Minutes 5 reps x2 Comments improved lift chin nods Supine Exercise Name added to HEP Equipment Used towel roll under head Reps/Minutes 5 x2 sets Comments improved ROM with less tension post manual Sitting Exercises neck stretching Sitting Exercise Name UT (SB), LS (look arm pit), scalene& SCM Side left Resistance cole home Reps/Minutes 20 SH each Comments good feedback stretch chin tuck Reps/Minutes 10 x2 SH Comments cues for elongate post neck and tuck chin Manual Therapy Treatment Soft Tissue Mobilization superior Body Location L UT, LS, Suboccipital Mobilization Type Sustained Pressure Intensity/Depth Moderate Body Position Sitting Comments w/rot ant Body Location L SCM & scalenes Mobilization Type Rolling,Sustained Pressure Intensity/Depth Moderate Self-Care/Home Management Treatment Education Patient Education Body Mechanics,Joint Protection,Pain Management, Posture Other Education ed use pillows on side, can't on stomach like dueto limted neck ROM. COntinued ed between BLEs, BUEs, behind back forspinal support. PT-OP-T Assessment and Plan Start: 09/05/23 17:32 Freq: Status: Active Protocol: Document 09/25/23 08:18 SP (Rec: 09/25/23 09:03 SP [id number]) Physical Therapy Assessment Goals ADL Short Term Goal (STG) Pt will be able to sleep through the night w/o waking up STG Duration 10/09/2023 [place] Goal (LTG) Pt will be able to perform all ADL's with no greater then 2/ 10 neck pain LTG Duration 12/05/2023 Functional ability Short Term Goal (STG) Pt will dec Neck & Shoulder disability index score from a 11/50 to a 6/50 to facilitate integration of ADL STG Duration 10/09/2023 [place] Goal (LTG) Pt will dec Neck & Shoulder disability index score from a 11/50 to a 0/50 to integrate ADL's back into daily routine LTG Duration 12/05/2023 ROM Short Term Goal (STG) Pt will be able to inc cervical ROM to 45 deg of motion B w/o inc in pain STG Duration 10/09/2023 [place] Goal (LTG) Pt will inc cervical ROM to 70 deg of motion B w/o inc in pain in order to drive safely LTG Duration 12/05/2023 Assessment Summary Assessment Pt tolerated manual and addition of head nods for CS AROM, was able to hold DNF contraction to lift head small range off towel to support stability to sit up with less UE support under head today. Initiated neck stretching in sitting for self tension reduction. Pt reported increase neck ROM end tx. Physical Therapy Plan Frequency and Duration Frequency of Treatment 1x/Week Duration of treatment (weeks) 12 Plan of Care Start Date 09/11/23 Plan of Care End Date 12/05/23 Therapeutic Interventions Therapeutic Interventions Home Exercise Program,Joint Mobilizations,Manual Therapy, Neuromuscular Re-education, Self-Care/Home Management,Soft Tissue Mobilization,Taping, Therapeutic Activities, Therapeutic Exercises Modalities Biofeedback,Cold Pack/Ice Massage,Electric Stimulation, Traction- Mechanical Next Visit Focus/Plan Next Note Type Treatment Note Next Visit Plan Assess response to added cervical ROM and DNF strengthening. Next review exercises; ball Is ,Ts, Ys/ scap and postural strengthening Manual; work on ability for R scap dep, ribcage mobility, B cervical tightness, SO
--- NOTE | 2023-10-17 13:52 | PT.OTN ---
Addendum entered and electronically signed by Anjali Hamilton, PT 10/17/23 14:41: PT direct supervision and direction to student PT Michael Quionnes throughout session Original Note: Current Diagnoses Cervicalgia (10/17/23) Paresthesia of skin (10/17/23) Physical Therapy Treatment Note PT-OP-A Visit Information Start: 09/05/23 17:32 Freq: Status: Active Protocol: Document 10/17/23 09:01 JG (Rec: 10/17/23 10:28 JG [id number]) Out-Patient Physical Therapy Visit Information Visit Information Visit Type Treatment Note Visit Start Time 09:01 Visit Stop Time 09:46 Visit Number 4/6 Number of COMMUNICATIONS ASSISTANT Visits 0 PT-OP-B Current Condition Start: 09/05/23 17:32 Freq: Status: Active Protocol: Document 09/11/23 08:17 JG (Rec: 09/11/23 17:23 JG [id number]) Current Condition History of Current Condition Onset Date June 2023 Current Complaints Neck pain, R UE tingling and JENSEN History of Current Condition She has a history of whiplash from falls and she has hit her head in the past with no reported concussions. She is a reported belly sleeper and has been having more issues with JENSEN recently due to her increased neck pain. Shes also reports tingiling in the Ulnar nerve. She does not stop herself from doing activites even with pain. She has stopped working out due to pain and being busy. She belivied that the pain started in June when she slept on it wrong and later helped her friend with yard work and the pain became unbearable. She uses tylonol and ibuprofen. The medication only provides short term relief. Treatment Goals Patient/Caregiver Goals Reduce neck pain and return to funtional activities Prior Functional Status Baseline Function- ADL's Independent Baseline Function- Mobility Independent Baseline Function- Other Independant with all functional activities PT-OP-C Subjective Start: 09/05/23 17:32 Freq: Status: Active Protocol: Document 10/17/23 09:01 JG (Rec: 10/17/23 10:28 JG [id number]) OP-PT Subjective Patient Comments Patient Comments Called in sick last session due to allergies. Pt reports that all exercises have been going well and she has been feeling much better with neck ROM and dec pain when rotating PT-OP-J Posture/Palpation/Skin Start: 09/05/23 17:32 Freq: Status: Active Protocol: Document 09/11/23 08:17 JG (Rec: 09/11/23 17:23 JG [id number]) Posture Evaluation Position Standing Evaluation View Anterior Head/C-Spine Posture Flexed,Rotated Left T-Spine Posture Rotation Left,Increased Kyphosis Thorax Posture Neutral L-Spine Posture Neutral Scapula Posture (L) Winged,(R) Winged Palpation Assessment Location Cervical Palpation Location L Trapizius and R scalenes Palpation Findings Soft Tissue Tightness, Tenderness Palpation Details L>R was more tender and elevated Skin Assessment Other Assessments Skin Assessment Comments Sensation WNL B PT-OP-K Range of Motion Start: 09/05/23 17:32 Freq: Status: Active Protocol: Document 09/11/23 08:17 JG (Rec: 09/11/23 17:23 JG [id number]) Cervical Spine Range of Motion Cervical Spine Active Testing Position Sitting Flexion 50 Extension 40 Rotation Left 30 Rotation Right 21 Lateral Flexion Left 30 Lateral Flexion Right 21 ROM Limitations Pain Comments Pain going down R side spine/ UE during testing PT-OP-L Special Tests Start: 09/05/23 17:32 Freq: Status: Active Protocol: Document 09/11/23 08:17 JG (Rec: 09/11/23 17:23 J [id number]) Special Tests Cervical Spine Special Tests Vertebral Artery Test Results Postional screen negative Comments Auscultation of the heart and carotid Compression/distraction Test Results Test positive with inc pain with compression and dec pain with distraction PT-OP-Q Treatments Start: 09/05/23 17:32 Freq: Status: Active Protocol: Document 10/17/23 09:01 JG (Rec: 10/17/23 10:28 J [id number]) Gym Equipment Therapeutic Ball I's, Y's and T's Exercise Details edu and performed I's, Y's and T's with proper form knees off ground Ball Size/Color Large/green Body Position Prone Reps/Duration 15 ea Comments Recivied tatile/v/c on proper muscles engaging and body position on ball Therapeutic Exercises Sitting Exercises neck stretching Sitting Exercise Name UT (SB), LS (look arm pit), scalene& SCM Side bilateral Reps/Minutes 20 sec ea B Comments Pt needed v/c for stretches and stretch sensation chin tuck Side bilateral Reps/Minutes x20 Comments cues for elongate post neck and tuck chin Manual Therapy Treatment Consent Patient gave verbal consent for manual Yes treatment Soft Tissue Mobilization ant Body Location L/R SCM & scalenes Mobilization Type Rolling,Sustained Pressure Intensity/Depth Moderate Body Position Supine Comments R>L SCM tightness Joint Mobilizations C spine Grade II Body Position Supine Reps/Duration 5 min Comments C3 R spinous process rotation with L head rotation for FM. STM on surrounding muscles, repeated rotation x5 ribs Comments rib 1 caudal FM w/SB PT-OP-T Assessment and Plan Start: 09/05/23 17:32 Freq: Status: Active Protocol: Document 10/17/23 09:01 (Rec: 10/17/23 10:28 [id number]) Physical Therapy Assessment Goals ADL Short Term Goal (STG) Pt will be able to sleep through the night w/o waking up STG Duration 10/09/2023 Process Development Chemist Goal (LTG) Pt will be able to perform all ADL's with no greater then 2/ 10 neck pain LTG Duration 12/05/2023 Functional ability Short Term Goal (STG) Pt will dec Neck & Shoulder disability index score from a 11/50 to a 6/50 to facilitate integration of ADL STG Duration 10/09/2023 Detention Goal (LTG) Pt will dec Neck & Shoulder disability index score from a 11/50 to a 0/50 to integrate ADL's back into daily routine LTG Duration 12/05/2023 ROM Short Term Goal (STG) Pt will be able to inc cervical ROM to 45 deg of motion B w/o inc in pain STG Duration 10/09/2023 Detention Goal (LTG) Pt will inc cervical ROM to 70 deg of motion B w/o inc in pain in order to drive safely LTG Duration 12/05/2023 Progress Towards Goals Progress Towards Goals Progressing Toward Goals Assessment Summary Assessment Pt tolerated manual therapy well today is reporting inc ROM and dec pain with stretches, head movements and exercises. Pt required inc time and v/c to go over HEP stretches and understand proper stretch feeling. Pt was introduced and tolerated therball exercises. Physical Therapy Plan Frequency and Duration Frequency of Treatment 1x/Week Duration of treatment (weeks) 12 Plan of Care Start Date 09/11/23 Plan of Care End Date 12/05/23 Next Visit Focus/Plan Next Note Type Treatment Note Next Visit Plan Assess response to added cervical ROM and therball exercises Futher scap and postural strengthening Manual; work on ability for R scap and B head rotation
--- NOTE | 2023-10-23 13:09 | PT.OTN ---
Current Diagnoses Cervicalgia (10/23/23) Paresthesia of skin (10/23/23) Physical Therapy Treatment Note PT-OP-A Visit Information Start: 09/05/23 17:32 Freq: Status: Active Protocol: Document 10/23/23 09:46 SW (Rec: 10/23/23 10:31 SW [id number]) Out-Patient Physical Therapy Visit Information Visit Information Visit Type Treatment Note Visit Start Time 09:46 Visit Stop Time 10:25 Visit Number 5/6 Number of MANAGER DELI Visits 1 PT-OP-B Current Condition Start: 09/05/23 17:32 Freq: Status: Active Protocol: Document 09/11/23 08:17 JG (Rec: 09/11/23 17:23 JG [id number]) Current Condition History of Current Condition Onset Date June 2023 Current Complaints Neck pain, R UE tingling and JENSEN History of Current Condition She has a history of whiplash from falls and she has hit her head in the past with no reported concussions. She is a reported belly sleeper and has been having more issues with JENSEN recently due to her increased neck pain. Shes also reports tingiling in the Ulnar nerve. She does not stop herself from doing activites even with pain. She has stopped working out due to pain and being busy. She belivied that the pain started in June when she slept on it wrong and later helped her friend with yard work and the pain became unbearable. She uses tylonol and ibuprofen. The medication only provides short term relief. Treatment Goals Patient/Caregiver Goals Reduce neck pain and return to funtional activities Prior Functional Status Baseline Function- ADL's Independent Baseline Function- Mobility Independent Baseline Function- Other Independant with all functional activities PT-OP-C Subjective Start: 09/05/23 17:32 Freq: Status: Active Protocol: Document 10/23/23 09:46 SW (Rec: 10/23/23 10:31 [id number]) OP-PT Subjective Patient Comments Patient Comments Pt reports getting better, each day notices improvement PT-OP-J Posture/Palpation/Skin Start: 09/05/23 17:32 Freq: Status: Active Protocol: Document 09/11/23 08:17 JG (Rec: 09/11/23 17:23 JG [id number]) Posture Evaluation Position Standing Evaluation View Anterior Head/C-Spine Posture Flexed,Rotated Left T-Spine Posture Rotation Left,Increased Kyphosis Thorax Posture Neutral L-Spine Posture Neutral Scapula Posture (L) Winged,(R) Winged Palpation Assessment Location Cervical Palpation Location L Trapizius and R scalenes Palpation Findings Soft Tissue Tightness, Tenderness Palpation Details L>R was more tender and elevated Skin Assessment Other Assessments Skin Assessment Comments Sensation WNL B PT-OP-K Range of Motion Start: 09/05/23 17:32 Freq: Status: Active Protocol: Document 09/11/23 08:17 JG (Rec: 09/11/23 17:23 JG [id number]) Cervical Spine Range of Motion Cervical Spine Active Testing Position Sitting Flexion 50 Extension 40 Rotation Left 30 Rotation Right 21 Lateral Flexion Left 30 Lateral Flexion Right 21 ROM Limitations Pain Comments Pain going down R side spine/ UE during testing PT-OP-L Special Tests Start: 09/05/23 17:32 Freq: Status: Active Protocol: Document 09/11/23 08:17 JG (Rec: 09/11/23 17:23 JG [id number]) Special Tests Cervical Spine Special Tests Vertebral Artery Test Results Postional screen negative Comments Auscultation of the heart and carotid Compression/distraction Test Results Test positive with inc pain with compression and dec pain with distraction PT-OP-Q Treatments Start: 09/05/23 17:32 Freq: Status: Active Protocol: Document 10/23/23 09:46 SW (Rec: 10/23/23 10:31 SW [id number]) Gym Equipment Therapeutic Ball I's, Y's and T's Exercise Details edu and performed I's, Y's and T's with proper form knees off ground Ball Size/Color Large/green Body Position Prone Reps/Duration 2x10 ea Comments Recivied tatile/v/c on proper muscles engaging and body position on ball Therapeutic Exercises Sitting Exercises neck stretching Sitting Exercise Name UT (SB), LS (look arm pit), scalene& SCM Side bilateral Reps/Minutes 20 sec ea B Comments Pt needed v/c for stretches and stretch sensation chin tuck Side bilateral Reps/Minutes x20 Comments cues for elongate post neck and tuck chin Cervical isometrics Sitting Exercise Name iso holds in flexion, ext and side bending Side bilateral Resistance hand Reps/Minutes 5 holdx2 ea Comments cues for neutral cervical spine alignment Manual Therapy Treatment Consent Patient gave verbal consent for manual Yes treatment Soft Tissue Mobilization superior Body Location UT, LS, Suboccipital Mobilization Type Sustained Pressure Intensity/Depth Moderate Body Position Supine Comments w/rot ant Body Location L/R SCM & scalenes Mobilization Type Rolling,Sustained Pressure Intensity/Depth Moderate Body Position Supine Comments palpable trigger points in R SCM Joint Mobilizations Scapular Joint R Scapular thoracic Direction protratction, retraction, upward rotation, inferior Body Position Sidelying Comments MWM PT-OP-T Assessment and Plan Start: 09/05/23 17:32 Freq: Status: Active Protocol: Document 10/23/23 09:46 SW (Rec: 10/23/23 10:31 SW [id number]) Physical Therapy Assessment Goals ADL Short Term Goal (STG) Pt will be able to sleep through the night w/o waking up STG Duration 10/09/2023 Detention Goal (LTG) Pt will be able to perform all ADL's with no greater then 2/ 10 neck pain LTG Duration 12/05/2023 Functional ability Short Term Goal (STG) Pt will dec Neck & Shoulder disability index score from a 11/50 to a 6/50 to facilitate integration of ADL STG Duration 10/09/2023 Detention Goal (LTG) Pt will dec Neck & Shoulder disability index score from a 11/50 to a 0/50 to integrate ADL's back into daily routine LTG Duration 12/05/2023 ROM Short Term Goal (STG) Pt will be able to inc cervical ROM to 45 deg of motion B w/o inc in pain STG Duration 10/09/2023 Detention Goal (LTG) Pt will inc cervical ROM to 70 deg of motion B w/o inc in pain in order to drive safely LTG Duration 12/05/2023 Assessment Summary Assessment Pt reports noticing increased range, feels improvement everyday. Initiated cervical isometrics, instructed pt carryover at home in front of mirror to facilitate proper alignment. Reviewed Is, Ys, and Ts this session, verbal cues for breathwork during to decrease tension in cervical mms, did not send home as HEP, plan to assess form and tolerance next session and issue HEP if pt has good tolerance/carryover of form. Physical Therapy Plan Frequency and Duration Frequency of Treatment 1x/Week Duration of treatment (weeks) 12 Plan of Care Start Date 09/11/23 Plan of Care End Date 12/05/23 Therapeutic Interventions Therapeutic Interventions Home Exercise Program,Joint Mobilizations,Manual Therapy, Neuromuscular Re-education, Self-Care/Home Management,Soft Tissue Mobilization,Taping, Therapeutic Activities, Therapeutic Exercises Modalities Biofeedback,Cold Pack/Ice Massage,Electric Stimulation, Traction- Mechanical Next Visit Focus/Plan Next Note Type Treatment Note Next Visit Plan Assess response to added cervical ROM and therball exercises Futher scap and postural strengthening Manual; work on ability for R scap and B head rotation
--- NOTE | 2023-10-29 12:25 | PT.OTN ---
Current Diagnoses Cervicalgia (10/29/23) Paresthesia of skin (10/29/23) Physical Therapy Treatment Note PT-OP-A Visit Information Start: 09/05/23 17:32 Freq: Status: Active Protocol: Document 10/29/23 09:05 [facility] (Rec: 10/29/23 12:25 [facility] [id number]) Out-Patient Physical Therapy Visit Information Visit Information Visit Type Progress Note Visit Start Time 09:06 Visit Stop Time 09:45 Visit Number 6/6 Number of CARPET YARN WINDER OPERATOR Visits 0 PT-OP-B Current Condition Start: 09/05/23 17:32 Freq: Status: Active Protocol: Document 09/11/23 08:17 JG (Rec: 09/11/23 17:23 JG [id number]) Current Condition History of Current Condition Onset Date June 2023 Current Complaints Neck pain, R UE tingling and JENSEN History of Current Condition She has a history of whiplash from falls and she has hit her head in the past with no reported concussions. She is a reported belly sleeper and has been having more issues with JENSEN recently due to her increased neck pain. Shes also reports tingiling in the Ulnar nerve. She does not stop herself from doing activites even with pain. She has stopped working out due to pain and being busy. She belivied that the pain started in June when she slept on it wrong and later helped her friend with yard work and the pain became unbearable. She uses tylonol and ibuprofen. The medication only provides short term relief. Treatment Goals Patient/Caregiver Goals Reduce neck pain and return to funtional activities Prior Functional Status Baseline Function- ADL's Independent Baseline Function- Mobility Independent Baseline Function- Other Independant with all functional activities PT-OP-C Subjective Start: 09/05/23 17:32 Freq: Status: Active Protocol: Document 10/29/23 09:05 [facility] (Rec: 10/29/23 12:25 [facility] [id number]) OP-PT Subjective Patient Comments Patient Comments Still has difficulty w/neck exercise w/roll forward. neck motion and soreness much improved. Does not limit her fromd oing things but does get sore especially since they have moved up here and she has been doign more lifting/ pushing/pulling Patient Reported Progress Improving PT-OP-J Posture/Palpation/Skin Start: 09/05/23 17:32 Freq: Status: Active Protocol: Document 09/11/23 08:17 J (Rec: 09/11/23 17:23 JG [id number]) Posture Evaluation Position Standing Evaluation View Anterior Head/C-Spine Posture Flexed,Rotated Left T-Spine Posture Rotation Left,Increased Kyphosis Thorax Posture Neutral L-Spine Posture Neutral Scapula Posture (L) Winged,(R) Winged Palpation Assessment Location Cervical Palpation Location L Trapizius and R scalenes Palpation Findings Soft Tissue Tightness, Tenderness Palpation Details L>R was more tender and elevated Skin Assessment Other Assessments Skin Assessment Comments Sensation WNL B PT-OP-K Range of Motion Start: 09/05/23 17:32 Freq: Status: Active Protocol: Document 10/29/23 09:05 [facility] (Rec: 10/29/23 12:25 [facility] [id number]) Cervical Spine Range of Motion Cervical Spine Active Testing Position Sitting Flexion 46 Extension 63 Rotation Left 50 Rotation Right 62 Lateral Flexion Left 32 Lateral Flexion Right 30 Comments 53 deg trunk rot R, 40 L; pain w/cervical L rot PT-OP-L Special Tests Start: 09/05/23 17:32 Freq: Status: Active Protocol: Document 09/11/23 08:17 (Rec: 09/11/23 17:23 [id number]) Special Tests Cervical Spine Special Tests Vertebral Artery Test Results Postional screen negative Comments Auscultation of the heart and carotid Compression/distraction Test Results Test positive with inc pain with compression and dec pain with distraction PT-OP-Q Treatments Start: 09/05/23 17:32 Freq: Status: Active Protocol: Document 10/29/23 09:05 [facility] (Rec: 10/29/23 12:25 [facility] [id number]) Therapeutic Exercises Supine Exercises cervical DNF & lift Supine Exercise Name added to HEP Equipment Used towel roll under head Reps/Minutes 10 Comments cues chin tuck and small lift maintaining chin tuck Sidelying Exercises open book Side bilateral Reps/Minutes 8 Comments cues for tspine rot and to rot w/neck also comfortable range Sitting Exercises ROM Sitting Exercise Name cervical ROM all planes; thoracic rot Side bilateral Standing Exercises self release Standing Exercise Name tennis ball vs wall and theracane R scap region Reps/Minutes 4 min Manual Therapy Treatment Consent Patient gave verbal consent for manual Yes treatment Soft Tissue Mobilization superior Body Location L>R UT, LS, Suboccipital Mobilization Type Sustained Pressure Intensity/Depth Moderate Body Position Supine Comments w/rot ant Body Location L>R SCM & scalenes Mobilization Type Rolling,Sustained Pressure Intensity/Depth Moderate Body Position Supine Joint Mobilizations C spine Comments transverse C3 R FMw/rot ribs Comments PA rib 1 FM L w/rot; caudal glide L ribs 1-3 s/l and supine FM w/shoulder elevation T spine Comments transverse R T1-3 FM; PA T2-3 FM seated PT-OP-T Assessment and Plan Start: 09/05/23 17:32 Freq: Status: Active Protocol: Document 10/29/23 09:05 [facility] (Rec: 10/29/23 12:25 [facility] [id number]) Physical Therapy Assessment Goals ADL Short Term Goal (STG) Pt will be able to sleep through the night w/o waking up STG Duration achieved 10/28 Lamp Shade Sewer Goal (LTG) Pt will be able to perform all ADL's with no greater then 2/ 10 neck pain 10/28-3 LTG Duration 12/05/2023 Functional ability Short Term Goal (STG) Pt will dec Neck & Shoulder disability index score from a 11/50 to a 6/50 to facilitate integration of ADL 10/28-13/- STG Duration 10/09/2023 Lamp Shade Sewer Goal (LTG) Pt will dec Neck & Shoulder disability index score from a 11/50 to a 0/50 to integrate ADL's back into daily routine LTG Duration 12/05/2023 ROM Short Term Goal (STG) Pt will be able to inc cervical ROM to 45 deg of motion B w/o inc in pain STG Duration achieved 10/28 Retirement Goal (LTG) Pt will inc cervical ROM to 70 deg of motion B w/o inc in pain in order to drive safely LTG Duration 12/05/2023 Assessment Summary Assessment pt making good progress w/PT and is noting overall dec pain level and mobility but still has functional limits and inc pain. She has much improved ROM since starting PT and after session today had further improvement in rot. Pt to cont PT for strength, ROM and funcitonal mboiltiy w/dec pain. Physical Therapy Plan Frequency and Duration Frequency of Treatment 1x/Week Duration of treatment (weeks) 12 Plan of Care Start Date 09/11/23 Plan of Care End Date 12/05/23 Therapeutic Interventions Therapeutic Interventions Home Exercise Program,Joint Mobilizations,Manual Therapy, Neuromuscular Re-education, Self-Care/Home Management,Soft Tissue Mobilization,Taping, Therapeutic Activities, Therapeutic Exercises Modalities Biofeedback,Cold Pack/Ice Massage,Electric Stimulation, Traction- Mechanical Next Visit Focus/Plan Next Note Type Treatment Note Next Visit Plan focus on progression of L tspine and cervical rotation & cervical flex
--- NOTE | 2023-11-06 12:26 | PT.OTN ---
Current Diagnoses Cervicalgia (11/06/23) Paresthesia of skin (11/06/23) Physical Therapy Treatment Note PT-OP-A Visit Information Start: 09/05/23 17:32 Freq: Status: Active Protocol: Document 11/06/23 09:07 [facility] (Rec: 11/06/23 12:26 [facility] [id number]) Out-Patient Physical Therapy Visit Information Visit Information Visit Type Treatment Note Visit Start Time 09:08 Visit Stop Time 09:46 Visit Number 7 Number of POULTRY HATCHERY MAN Visits 0 PT-OP-B Current Condition Start: 09/05/23 17:32 Freq: Status: Active Protocol: Document 09/11/23 08:17 JG (Rec: 09/11/23 17:23 JG [id number]) Current Condition History of Current Condition Onset Date June 2023 Current Complaints Neck pain, R UE tingling and JENSEN History of Current Condition She has a history of whiplash from falls and she has hit her head in the past with no reported concussions. She is a reported belly sleeper and has been having more issues with JENSEN recently due to her increased neck pain. Shes also reports tingiling in the Ulnar nerve. She does not stop herself from doing activites even with pain. She has stopped working out due to pain and being busy. She belivied that the pain started in June when she slept on it wrong and later helped her friend with yard work and the pain became unbearable. She uses tylonol and ibuprofen. The medication only provides short term relief. Treatment Goals Patient/Caregiver Goals Reduce neck pain and return to funtional activities Prior Functional Status Baseline Function- ADL's Independent Baseline Function- Mobility Independent Baseline Function- Other Independant with all functional activities PT-OP-C Subjective Start: 09/05/23 17:32 Freq: Status: Active Protocol: Document 11/06/23 09:07 [facility] (Rec: 11/06/23 12:26 [facility] [id number]) OP-PT Subjective Patient Comments Patient Comments Pt notes pain when in Am and periodically during day. Was sore after last session. Better today. PT-OP-J Posture/Palpation/Skin Start: 09/05/23 17:32 Freq: Status: Active Protocol: Document 09/11/23 08:17 JG (Rec: 09/11/23 17:23 JG [id number]) Posture Evaluation Position Standing Evaluation View Anterior Head/C-Spine Posture Flexed,Rotated Left T-Spine Posture Rotation Left,Increased Kyphosis Thorax Posture Neutral L-Spine Posture Neutral Scapula Posture (L) Winged,(R) Winged Palpation Assessment Location Cervical Palpation Location L Trapizius and R scalenes Palpation Findings Soft Tissue Tightness, Tenderness Palpation Details L>R was more tender and elevated Skin Assessment Other Assessments Skin Assessment Comments Sensation WNL B PT-OP-K Range of Motion Start: 09/05/23 17:32 Freq: Status: Active Protocol: Document 10/29/23 09:05 [facility] (Rec: 10/29/23 12:25 [facility] [id number]) Cervical Spine Range of Motion Cervical Spine Active Testing Position Sitting Flexion 46 Extension 63 Rotation Left 50 Rotation Right 62 Lateral Flexion Left 32 Lateral Flexion Right 30 Comments 53 deg trunk rot R, 40 L; pain w/cervical L rot PT-OP-L Special Tests Start: 09/05/23 17:32 Freq: Status: Active Protocol: Document 09/11/23 08:17 (Rec: 09/11/23 17:23 [id number]) Special Tests Cervical Spine Special Tests Vertebral Artery Test Results Postional screen negative Comments Auscultation of the heart and carotid Compression/distraction Test Results Test positive with inc pain with compression and dec pain with distraction PT-OP-Q Treatments Start: 09/05/23 17:32 Freq: Status: Active Protocol: Document 11/06/23 09:07 [facility] (Rec: 11/06/23 12:26 [facility] [id number]) Therapeutic Activity Therapeutic Activity sleep position Comments 15 min: edu on sleep positiona nd propping in s/l and difference w/pillow types for neck support and keeping self up in bed in order to avoid losing pillow support in night . Worked on props of trunk and arm to help support Manual Therapy Treatment Consent Patient gave verbal consent for manual Yes treatment Soft Tissue Mobilization ant Body Location L>R SCM & scalenes Mobilization Type Rolling,Sustained Pressure Intensity/Depth Moderate Body Position Supine Joint Mobilizations sternum Joint AP R manubrium and sternum w/ AAROM flex C spine Comments C4 and 6 upglide R ; C5 downglide L T spine Comments transverse T1 R FM PT-OP-T Assessment and Plan Start: 05/29/24 17:32 Freq: Status: Active Protocol: Document 11/06/23 09:07 [facility] (Rec: 11/06/23 12:26 [facility] [id number]) Physical Therapy Assessment Goals ADL Short Term Goal (STG) Pt will be able to sleep through the night w/o waking up STG Duration achieved 10/28 Drywall Application Supervisor Goal (LTG) Pt will be able to perform all ADL's with no greater then 2/ 10 neck pain 10/28-3/10 LTG Duration 12/05/2023 Functional ability Short Term Goal (STG) Pt will dec Neck & Shoulder disability index score from a 11/50 to a 6/50 to facilitate integration of ADL 10/28-13/5- STG Duration 10/09/2023 Drywall Application Supervisor Goal (LTG) Pt will dec Neck & Shoulder disability index score from a 11/50 to a 0/50 to integrate ADL's back into daily routine LTG Duration 12/05/2023 ROM Short Term Goal (STG) Pt will be able to inc cervical ROM to 45 deg of motion B w/o inc in pain STG Duration achieved 10/28 [facility] Goal (LTG) Pt will inc cervical ROM to 70 deg of motion B w/o inc in pain in order to drive safely LTG Duration 12/05/2023 Assessment Summary Assessment Pt had imrpoved cervical rotation w/manual care today and flex. demonstrated good understanding w/sleep positioning Physical Therapy Plan Frequency and Duration Frequency of Treatment 1x/Week Duration of treatment (weeks) 12 Plan of Care Start Date 09/11/23 Plan of Care End Date 12/05/23 Next Visit Focus/Plan Next Note Type Treatment Note Next Visit Plan focus on progression of L tspine and cervical rotation & cervical flex
--- NOTE | 2023-11-12 16:29 | PT.OTN ---
Current Diagnoses Cervicalgia (11/12/23) Paresthesia of skin (11/12/23) Physical Therapy Treatment Note PT-OP-A Visit Information Start: 09/05/23 17:32 Freq: Status: Active Protocol: Document 11/12/23 12:56 AB (Rec: 11/12/23 13:47 AB [id number]) Out-Patient Physical Therapy Visit Information Visit Information Visit Type Treatment Note Visit Note Access Code: [email or web address] Visit Start Time 13:02 Visit Stop Time 13:45 Visit Number 8 Number of ANALYTICAL CHEMIST Visits 1 PT-OP-B Current Condition Start: 09/05/23 17:32 Freq: Status: Active Protocol: Document 09/11/23 08:17 JG (Rec: 09/11/23 17:23 JG [id number]) Current Condition History of Current Condition Onset Date June 2023 Current Complaints Neck pain, R UE tingling and JENSEN History of Current Condition She has a history of whiplash from falls and she has hit her head in the past with no reported concussions. She is a reported belly sleeper and has been having more issues with JENSEN recently due to her increased neck pain. Shes also reports tingiling in the Ulnar nerve. She does not stop herself from doing activites even with pain. She has stopped working out due to pain and being busy. She belivied that the pain started in June when she slept on it wrong and later helped her friend with yard work and the pain became unbearable. She uses tylonol and ibuprofen. The medication only provides short term relief. Treatment Goals Patient/Caregiver Goals Reduce neck pain and return to funtional activities Prior Functional Status Baseline Function- ADL's Independent Baseline Function- Mobility Independent Baseline Function- Other Independant with all functional activities PT-OP-C Subjective Start: 09/05/23 17:32 Freq: Status: Active Protocol: Document 11/12/23 12:56 AB (Rec: 11/12/23 13:47 AB [id number]) OP-PT Subjective Patient Comments Patient Comments Patient reports she is the same, thinks she has hit a plateau. Patient reports turning to scan for traffic continues to be a problem. PT-OP-J Posture/Palpation/Skin Start: 09/05/23 17:32 Freq: Status: Active Protocol: Document 09/11/23 08:17 JG (Rec: 09/11/23 17:23 JG [id number]) Posture Evaluation Position Standing Evaluation View Anterior Head/C-Spine Posture Flexed,Rotated Left T-Spine Posture Rotation Left,Increased Kyphosis Thorax Posture Neutral L-Spine Posture Neutral Scapula Posture (L) Winged,(R) Winged Palpation Assessment Location Cervical Palpation Location L Trapizius and R scalenes Palpation Findings Soft Tissue Tightness, Tenderness Palpation Details L>R was more tender and elevated Skin Assessment Other Assessments Skin Assessment Comments Sensation WNL B PT-OP-K Range of Motion Start: 09/05/23 17:32 Freq: Status: Active Protocol: Document 10/29/23 09:05 [facility] (Rec: 10/29/23 12:25 [facility] [id number]) Cervical Spine Range of Motion Cervical Spine Active Testing Position Sitting Flexion 46 Extension 63 Rotation Left 50 Rotation Right 62 Lateral Flexion Left 32 Lateral Flexion Right 30 Comments 53 deg trunk rot R, 40 L; pain w/cervical L rot PT-OP-L Special Tests Start: 09/05/23 17:32 Freq: Status: Active Protocol: Document 09/11/23 08:17 J (Rec: 09/11/23 17:23 J [id number]) Special Tests Cervical Spine Special Tests Vertebral Artery Test Results Postional screen negative Comments Auscultation of the heart and carotid Compression/distraction Test Results Test positive with inc pain with compression and dec pain with distraction PT-OP-Q Treatments Start: 09/05/23 17:32 Freq: Status: Active Protocol: Document 11/12/23 12:56 AB (Rec: 11/12/23 13:47 AB [id number]) Therapeutic Exercises Supine Exercises CS rotation Side bilateral Equipment Used occipital float Reps/Minutes 2 min Comments verbal cues to perform slowly in pain free range Sidelying Exercises open book Side bilateral Reps/Minutes X5 Comments verbal cues for holding 5 breaths, knees at 90 deg Sitting Exercises Breathing from diaphragm Sitting Exercise Name sitting with pillows under UE' s to unload shoulders/nec Side bilateral Reps/Minutes 2 min Comments verbal cues for breathing from diaphragm neck stretching Sitting Exercise Name UT (SB), LS (look arm pit), scalene& SCM Side bilateral Reps/Minutes 20 sec ea B Comments Pt needed v/c for stretches and stretch sensation Standing Exercises counter plank/thread needel Side bilateral Reps/Minutes 10 Comments verbal and visual cues Other Exercises quadruped CS rotation Side bilateral Reps/Minutes X10 Comments Verbal cues to perform slowly in pain free range Manual Therapy Treatment Consent Patient gave verbal consent for manual Yes treatment Soft Tissue Mobilization Thoracic Body Location Paraspinals Mobilization Type Cross-Friction,Sustained Pressure Intensity/Depth Moderate Body Position Sidelying CS Body Location scalenes at lat clavicle, CS paraspinals, UT, levat scap Mobilization Type Cross-Friction,Rolling Intensity/Depth Moderate Body Position Sitting Joint Mobilizations Mulligan with movement Joint C5 snag Direction left Grade III Body Position X5 Scapular Joint R Scapular thoracic Direction depression and adduction Grade IV Body Position Sidelying PT-OP-T Assessment and Plan Start: 09/05/23 17:32 Freq: Status: Active Protocol: Document 11/12/23 12:56 AB (Rec: 11/12/23 13:47 AB [id number]) Physical Therapy Assessment Goals ADL Short Term Goal (STG) Pt will be able to sleep through the night w/o waking up STG Duration achieved 10/28 Studio Sales Associate Goal (LTG) Pt will be able to perform all ADL's with no greater then 2/ 10 neck pain 10/28-3/10 LTG Duration 12/05/2023 Functional ability Short Term Goal (STG) Pt will dec Neck & Shoulder disability index score from a 11/50 to a 6/50 to facilitate integration of ADL 10/28-13/- STG Duration 10/09/2023 Studio Sales Associate Goal (LTG) Pt will dec Neck & Shoulder disability index score from a 11/50 to a 0/50 to integrate ADL's back into daily routine LTG Duration 12/05/2023 ROM Short Term Goal (STG) Pt will be able to inc cervical ROM to 45 deg of motion B w/o inc in pain STG Duration achieved 10/28 Studio Sales Associate Goal (LTG) Pt will inc cervical ROM to 70 deg of motion B w/o inc in pain in order to drive safely LTG Duration 12/05/2023 Assessment Summary Assessment Visible increase in thoracic rotation AROM end of session. Physical Therapy Plan Frequency and Duration Frequency of Treatment 1x/Week Duration of treatment (weeks) 12 Plan of Care Start Date 09/11/23 Plan of Care End Date 12/05/23 Next Visit Focus/Plan Next Note Type Treatment Note Next Visit Plan focus on progression of L tspine and cervical rotation & cervical flex
--- NOTE | 2023-11-21 12:26 | PT.OTN ---
Current Diagnoses Cervicalgia (11/21/23) Paresthesia of skin (11/21/23) Physical Therapy Treatment Note PT-OP-A Visit Information Start: 09/05/23 17:32 Freq: Status: Active Protocol: Document 11/21/23 09:07 [facility] (Rec: 11/21/23 12:26 [facility] [id number]) Out-Patient Physical Therapy Visit Information Visit Information Visit Type Treatment Note Visit Note Access Code: [email or web address] Visit Start Time 09:06 Visit Stop Time 09:46 Visit Number 9 Number of ELECTRICAL INSTALLATION SUPERVISOR Visits 0 PT-OP-B Current Condition Start: 09/05/23 17:32 Freq: Status: Active Protocol: Document 09/11/23 08:17 JG (Rec: 09/11/23 17:23 JG [id number]) Current Condition History of Current Condition Onset Date June 2023 Current Complaints Neck pain, R UE tingling and JENSEN History of Current Condition She has a history of whiplash from falls and she has hit her head in the past with no reported concussions. She is a reported belly sleeper and has been having more issues with JENSEN recently due to her increased neck pain. Shes also reports tingiling in the Ulnar nerve. She does not stop herself from doing activites even with pain. She has stopped working out due to pain and being busy. She belivied that the pain started in June when she slept on it wrong and later helped her friend with yard work and the pain became unbearable. She uses tylonol and ibuprofen. The medication only provides short term relief. Treatment Goals Patient/Caregiver Goals Reduce neck pain and return to funtional activities Prior Functional Status Baseline Function- ADL's Independent Baseline Function- Mobility Independent Baseline Function- Other Independant with all functional activities PT-OP-C Subjective Start: 09/05/23 17:32 Freq: Status: Active Protocol: Document 11/21/23 09:07 [facility] (Rec: 11/21/23 12:26 [facility] [id number]) OP-PT Subjective Patient Comments Patient Comments pt reports a few days after last session, started having neck pain constant at CT junction and lat neck. She hasn't done anything. Unsure what happened. She is doing exercises. Thinks it has just got gradually worse PT-OP-J Posture/Palpation/Skin Start: 09/05/23 17:32 Freq: Status: Active Protocol: Document 09/11/23 08:17 (Rec: 09/11/23 17:23 [id number]) Posture Evaluation Position Standing Evaluation View Anterior Head/C-Spine Posture Flexed,Rotated Left T-Spine Posture Rotation Left,Increased Kyphosis Thorax Posture Neutral L-Spine Posture Neutral Scapula Posture (L) Winged,(R) Winged Palpation Assessment Location Cervical Palpation Location L Trapizius and R scalenes Palpation Findings Soft Tissue Tightness, Tenderness Palpation Details L>R was more tender and elevated Skin Assessment Other Assessments Skin Assessment Comments Sensation WNL B PT-OP-K Range of Motion Start: 09/05/23 17:32 Freq: Status: Active Protocol: Document 10/29/23 09:05 [facility] (Rec: 10/29/23 12:25 [facility] [id number]) Cervical Spine Range of Motion Cervical Spine Active Testing Position Sitting Flexion 46 Extension 63 Rotation Left 50 Rotation Right 62 Lateral Flexion Left 32 Lateral Flexion Right 30 Comments 53 deg trunk rot R, 40 L; pain w/cervical L rot PT-OP-L Special Tests Start: 09/05/23 17:32 Freq: Status: Active Protocol: Document 09/11/23 08:17 (Rec: 09/11/23 17:23 [id number]) Special Tests Cervical Spine Special Tests Vertebral Artery Test Results Postional screen negative Comments Auscultation of the heart and carotid Compression/distraction Test Results Test positive with inc pain with compression and dec pain with distraction PT-OP-Q Treatments Start: 09/05/23 17:32 Freq: Status: Active Protocol: Document 11/21/23 09:07 [facility] (Rec: 11/21/23 12:26 [facility] [id number]) Manual Therapy Treatment Consent Patient gave verbal consent for manual Yes treatment Soft Tissue Mobilization ribcage Comments R coronary ligament OSFM CS Body Location paraspinals Mobilization Type Rolling Intensity/Depth Moderate Body Position Supine ant Body Location L>R SCM & scalenes Mobilization Type Rolling,Sustained Pressure Intensity/Depth Moderate Body Position Supine Joint Mobilizations ribs Comments 1. R caudal 1 and 2 rib 2. external torsion rib 6 FM T spine Comments PA w/UPA R focus seated FM T1- 3 and T5 PT-OP-T Assessment and Plan Start: 09/05/23 17:32 Freq: Status: Active Protocol: Document 11/21/23 09:07 [facility] (Rec: 11/21/23 12:26 [facility] [id number]) Physical Therapy Assessment Goals ADL Short Term Goal (STG) Pt will be able to sleep through the night w/o waking up STG Duration achieved 10/28 Paint Technician Goal (LTG) Pt will be able to perform all ADL's with no greater then 2/ 10 neck pain 10/28-3/10 LTG Duration 12/05/2023 Functional ability Short Term Goal (STG) Pt will dec Neck & Shoulder disability index score from a 11/50 to a 6/50 to facilitate integration of ADL 10/28-13/- STG Duration 10/09/2023 Halfway Goal (LTG) Pt will dec Neck & Shoulder disability index score from a 11/50 to a 0/50 to integrate ADL's back into daily routine LTG Duration 12/05/2023 ROM Short Term Goal (STG) Pt will be able to inc cervical ROM to 45 deg of motion B w/o inc in pain STG Duration achieved 10/28 Halfway Goal (LTG) Pt will inc cervical ROM to 70 deg of motion B w/o inc in pain in order to drive safely LTG Duration 12/05/2023 Assessment Summary Assessment Pt had improved AROM B rot and SB and flex after manual w/ dec pain. Physical Therapy Plan Frequency and Duration Frequency of Treatment 1x/Week Duration of treatment (weeks) 12 Plan of Care Start Date 09/11/23 Plan of Care End Date 12/05/23 Next Visit Focus/Plan Next Note Type Treatment Note Next Visit Plan focus on progression of L tspine and cervical rotation & cervical flex
--- NOTE | 2023-12-05 17:30 | PT.OTN ---
Current Diagnoses Cervicalgia (12/05/23) Paresthesia of skin (12/05/23) Physical Therapy Treatment Note PT-OP-A Visit Information Start: 09/05/23 17:32 Freq: Status: Active Protocol: Document 12/05/23 13:54 [facility] (Rec: 12/05/23 18:25 [facility] [id number]) Out-Patient Physical Therapy Visit Information Visit Information Visit Type Progress Note Visit Start Time 13:50 Visit Stop Time 14:30 Visit Number 10 Number of FRUIT CUTTER Visits 0 PT-OP-B Current Condition Start: 09/05/23 17:32 Freq: Status: Active Protocol: Document 09/11/23 08:17 JG (Rec: 09/11/23 17:23 JG [id number]) Current Condition History of Current Condition Onset Date June 2023 Current Complaints Neck pain, R UE tingling and JENSEN History of Current Condition She has a history of whiplash from falls and she has hit her head in the past with no reported concussions. She is a reported belly sleeper and has been having more issues with JENSEN recently due to her increased neck pain. Shes also reports tingiling in the Ulnar nerve. She does not stop herself from doing activites even with pain. She has stopped working out due to pain and being busy. She belivied that the pain started in June when she slept on it wrong and later helped her friend with yard work and the pain became unbearable. She uses tylonol and ibuprofen. The medication only provides short term relief. Treatment Goals Patient/Caregiver Goals Reduce neck pain and return to funtional activities Prior Functional Status Baseline Function- ADL's Independent Baseline Function- Mobility Independent Baseline Function- Other Independant with all functional activities PT-OP-C Subjective Start: 09/05/23 17:32 Freq: Status: Active Protocol: Document 12/05/23 13:54 [facility] (Rec: 12/05/23 18:25 [facility] [id number]) OP-PT Subjective Patient Comments Patient Comments Pt reports improved sicne last session. Xray did not show anything. Notes taking tylenol daily PT-OP-J Posture/Palpation/Skin Start: 09/05/23 17:32 Freq: Status: Active Protocol: Document 09/11/23 08:17 JG (Rec: 09/11/23 17:23 JG [id number]) Posture Evaluation Position Standing Evaluation View Anterior Head/C-Spine Posture Flexed,Rotated Left T-Spine Posture Rotation Left,Increased Kyphosis Thorax Posture Neutral L-Spine Posture Neutral Scapula Posture (L) Winged,(R) Winged Palpation Assessment Location Cervical Palpation Location L Trapizius and R scalenes Palpation Findings Soft Tissue Tightness, Tenderness Palpation Details L>R was more tender and elevated Skin Assessment Other Assessments Skin Assessment Comments Sensation WNL B PT-OP-K Range of Motion Start: 09/05/23 17:32 Freq: Status: Active Protocol: Document 10/29/23 09:05 [facility] (Rec: 10/29/23 12:25 [facility] [id number]) Cervical Spine Range of Motion Cervical Spine Active Testing Position Sitting Flexion 46 Extension 63 Rotation Left 50 Rotation Right 62 Lateral Flexion Left 32 Lateral Flexion Right 30 Comments 53 deg trunk rot R, 40 L; pain w/cervical L rot PT-OP-L Special Tests Start: 09/05/23 17:32 Freq: Status: Active Protocol: Document 09/11/23 08:17 (Rec: 09/11/23 17:23 [id number]) Special Tests Cervical Spine Special Tests Vertebral Artery Test Results Postional screen negative Comments Auscultation of the heart and carotid Compression/distraction Test Results Test positive with inc pain with compression and dec pain with distraction PT-OP-Q Treatments Start: 09/05/23 17:32 Freq: Status: Active Protocol: Document 12/05/23 13:54 [facility] (Rec: 12/05/23 18:25 [facility] [id number]) Therapeutic Exercises Prone Exercises plank Prone Exercise Name hands and knees Side bilateral Reps/Minutes 20 sec x4 Comments attempted full but unable Standing Exercises wall posture Standing Exercise Name roll up Other Exercises quadruped Other Exercise Name chin tuck Reps/Minutes 10 sec x3 Manual Therapy Treatment Consent Patient gave verbal consent for manual Yes treatment Soft Tissue Mobilization CS Body Location paraspinals Mobilization Type Rolling Intensity/Depth Moderate Body Position Supine superior Body Location L>R UT, LS, Suboccipital Mobilization Type Sustained Pressure Intensity/Depth Moderate Body Position Supine Comments w/rot ant Body Location L>R SCM & scalenes Mobilization Type Rolling,Sustained Pressure Intensity/Depth Moderate Body Position Supine Joint Mobilizations T spine Comments PA w/UPA T4, T3, T6 and 7 FM seated PT-OP-T Assessment and Plan Start: 09/05/23 17:32 Freq: Status: Active Protocol: Document 12/05/23 13:54 [facility] (Rec: 12/05/23 18:25 [facility] [id number]) Physical Therapy Assessment Goals ADL Short Term Goal (STG) Pt will be able to sleep through the night w/o waking up STG Duration achieved 10/28 Fdc Goal (LTG) Pt will be able to perform all ADL's with no greater then 2/ 10 neck pain 10/28-312/04-inc pain w/gardening and biking noted LTG Duration Functional ability Short Term Goal (STG) Pt will dec Neck & Shoulder disability index score from a 11/50 to a 6/50 to facilitate integration of ADL 10/28- 12/04-n/t STG Duration 12/22 Mechanic Insulator Goal (LTG) Pt will dec Neck & Shoulder disability index score from a 11/50 to a 0/50 to integrate ADL's back into daily routine LTG Duration 02/06 ROM Short Term Goal (STG) Pt will be able to inc cervical ROM to 45 deg of motion B w/o inc in pain STG Duration achieved 10/28 Fdc Goal (LTG) Pt will inc cervical ROM to 70 deg of motion B w/o inc in pain in order to drive safely 12/04-n/t about 60 deg B though today LTG Duration 02/06 Assessment Summary Assessment Inc time needed for plank and quadruped exercise for performance. After setback, pt has resumed progress w/PT again w/improved ROM but still inc pain w/inc functional activity. Cont PT to improve ROM and stability further in order to inc ease w/activity Physical Therapy Plan Frequency and Duration Frequency of Treatment 1x/Week Duration of treatment (weeks) 8 Plan of Care Start Date 12/05/23 Plan of Care End Date 02/07/24 Therapeutic Interventions Therapeutic Interventions Home Exercise Program,Joint Mobilizations,Manual Therapy, Neuromuscular Re-education, Self-Care/Home Management,Soft Tissue Mobilization,Taping, Therapeutic Activities, Therapeutic Exercises Modalities Biofeedback,Cold Pack/Ice Massage,Electric Stimulation, Traction- Mechanical Next Visit Focus/Plan Next Note Type Treatment Note Next Visit Plan focus on progression of L tspine and cervical rotation & cervical flex
--- NOTE | 2023-12-05 17:30 | PT.OPPOC ---
Physical, Occupational & Speech Therapy At [facility] Current Diagnoses Cervicalgia (12/05/23) Paresthesia of skin (12/05/23) Visit Care Team Role Provider Type Anjali Dawson MD Attending Provider Physician Family Provider Primary Care Provider Referring Provider Specialty: Family Practice Address: [address] [place] [address], [facility] Email: [email or web address] Plan Of Care PT-OP-B Current Condition Start: 09/05/23 17:32 Freq: Status: Active Protocol: Document 09/11/23 08:17 J (Rec: 09/11/23 17:23 J [id number]) Current Condition History of Current Condition Onset Date June 2023 Current Complaints Neck pain, R UE tingling and JENSEN History of Current Condition She has a history of whiplash from falls and she has hit her head in the past with no reported concussions. She is a reported belly sleeper and has been having more issues with JENSEN recently due to her increased neck pain. Shes also reports tingiling in the Ulnar nerve. She does not stop herself from doing activites even with pain. She has stopped working out due to pain and being busy. She belivied that the pain started in June when she slept on it wrong and later helped her friend with yard work and the pain became unbearable. She uses tylonol and ibuprofen. The medication only provides short term relief. Treatment Goals Patient/Caregiver Goals Reduce neck pain and return to funtional activities Prior Functional Status Baseline Function- ADL's Independent Baseline Function- Mobility Independent Baseline Function- Other Independant with all functional activities PT-OP-T Assessment and Plan Start: 09/05/23 17:32 Freq: Status: Active Protocol: Document 12/05/23 13:54 [facility] (Rec: 12/05/23 18:25 [facility] [id number]) Physical Therapy Assessment Goals ADL Short Term Goal (STG) Pt will be able to sleep through the night w/o waking up STG Duration achieved 10/28 Windlasser Goal (LTG) Pt will be able to perform all ADL's with no greater then 2/ 10 neck pain 10/28-06/16 12/04-inc pain w/gardening and biking noted LTG Duration Functional ability Short Term Goal (STG) Pt will dec Neck & Shoulder disability index score from a 11/50 to a 6/50 to facilitate integration of ADL 10/28- 12/04-n/t STG Duration 12/22 Windlasser Goal (LTG) Pt will dec Neck & Shoulder disability index score from a 11/50 to a 0/50 to integrate ADL's back into daily routine LTG Duration 02/06 ROM Short Term Goal (STG) Pt will be able to inc cervical ROM to 45 deg of motion B w/o inc in pain STG Duration achieved 10/28 Windlasser Goal (LTG) Pt will inc cervical ROM to 70 deg of motion B w/o inc in pain in order to drive safely 12/04-n/t about 60 deg B though today LTG Duration 02/06 Assessment Summary Assessment Inc time needed for plank and quadruped exercise for performance. After setback, pt has resumed progress w/PT again w/improved ROM but still inc pain w/inc functional activity. Cont PT to improve ROM and stability further in order to inc ease w/activity Physical Therapy Plan Frequency and Duration Frequency of Treatment 1x/Week Duration of treatment (weeks) 8 Plan of Care Start Date 12/05/23 Plan of Care End Date 02/07/24 Therapeutic Interventions Therapeutic Interventions Home Exercise Program,Joint Mobilizations,Manual Therapy, Neuromuscular Re-education, Self-Care/Home Management,Soft Tissue Mobilization,Taping, Therapeutic Activities, Therapeutic Exercises Modalities Biofeedback,Cold Pack/Ice Massage,Electric Stimulation, Traction- Mechanical Next Visit Focus/Plan Next Note Type Treatment Note Next Visit Plan focus on progression of L tspine and cervical rotation & cervical flex Plan of Care Dates Plan of Care Start Date 12/05/23 Plan of Care End Date 02/07/24 Electronically Signed by: Anjali Hamilton, PT 12/06/23 [id number] If you are in agreement with this Plan of Care, please return a signed and dated copy. I have reviewed this Plan of Care and certify that the skilled therapy services above are required to meet the patient?s needs. Physician Signature Date Printed Name and Credentials Clinical Instructor Signature Printed Name and Credentials
--- NOTE | 2023-12-12 17:56 | PT.OTN ---
Current Diagnoses Cervicalgia (12/12/23) Paresthesia of skin (12/12/23) Physical Therapy Treatment Note PT-OP-A Visit Information Start: 09/05/23 17:32 Freq: Status: Active Protocol: Document 12/12/23 13:06 [facility] (Rec: 12/12/23 16:54 [facility] [id number]) Out-Patient Physical Therapy Visit Information Visit Information Visit Type Treatment Note Visit Start Time 13:03 Visit Stop Time 13:43 Visit Number 11 Number of PHARMACOVIGILANCE SPECIALIST Visits 0 PT-OP-B Current Condition Start: 09/05/23 17:32 Freq: Status: Active Protocol: Document 09/11/23 08:17 JG (Rec: 09/11/23 17:23 JG [id number]) Current Condition History of Current Condition Onset Date June 2023 Current Complaints Neck pain, R UE tingling and JENSEN History of Current Condition She has a history of whiplash from falls and she has hit her head in the past with no reported concussions. She is a reported belly sleeper and has been having more issues with JENSEN recently due to her increased neck pain. Shes also reports tingiling in the Ulnar nerve. She does not stop herself from doing activites even with pain. She has stopped working out due to pain and being busy. She belivied that the pain started in June when she slept on it wrong and later helped her friend with yard work and the pain became unbearable. She uses tylonol and ibuprofen. The medication only provides short term relief. Treatment Goals Patient/Caregiver Goals Reduce neck pain and return to funtional activities Prior Functional Status Baseline Function- ADL's Independent Baseline Function- Mobility Independent Baseline Function- Other Independant with all functional activities PT-OP-C Subjective Start: 09/05/23 17:32 Freq: Status: Active Protocol: Document 12/12/23 13:06 [facility] (Rec: 12/12/23 16:54 [facility] [id number]) OP-PT Subjective Patient Comments Patient Comments Pt got a rx of flexeril and took one last night. Woke up and it was achey and got some burning after gardening today. PT-OP-J Posture/Palpation/Skin Start: 09/05/23 17:32 Freq: Status: Active Protocol: Document 09/11/23 08:17 JG (Rec: 09/11/23 17:23 [id number]) Posture Evaluation Position Standing Evaluation View Anterior Head/C-Spine Posture Flexed,Rotated Left T-Spine Posture Rotation Left,Increased Kyphosis Thorax Posture Neutral L-Spine Posture Neutral Scapula Posture (L) Winged,(R) Winged Palpation Assessment Location Cervical Palpation Location L Trapizius and R scalenes Palpation Findings Soft Tissue Tightness, Tenderness Palpation Details L>R was more tender and elevated Skin Assessment Other Assessments Skin Assessment Comments Sensation WNL B PT-OP-K Range of Motion Start: 09/05/23 17:32 Freq: Status: Active Protocol: Document 10/29/23 09:05 [facility] (Rec: 10/29/23 12:25 [facility] [id number]) Cervical Spine Range of Motion Cervical Spine Active Testing Position Sitting Flexion 46 Extension 63 Rotation Left 50 Rotation Right 62 Lateral Flexion Left 32 Lateral Flexion Right 30 Comments 53 deg trunk rot R, 40 L; pain w/cervical L rot PT-OP-L Special Tests Start: 09/05/23 17:32 Freq: Status: Active Protocol: Document 09/11/23 08:17 (Rec: 09/11/23 17:23 [id number]) Special Tests Cervical Spine Special Tests Vertebral Artery Test Results Postional screen negative Comments Auscultation of the heart and carotid Compression/distraction Test Results Test positive with inc pain with compression and dec pain with distraction PT-OP-Q Treatments Start: 09/05/23 17:32 Freq: Status: Active Protocol: Document 12/12/23 13:06 [facility] (Rec: 12/12/23 16:54 [facility] [id number]) Therapeutic Exercises Prone Exercises plank Prone Exercise Name hands and knees Side bilateral Reps/Minutes 20 sec x3 Sitting Exercises chin tuck Side bilateral Reps/Minutes 10 Comments cues for elongate post neck and tuck chin Manual Therapy Treatment Consent Patient gave verbal consent for manual Yes treatment Soft Tissue Mobilization cranial Body Location MFR cranial fascia Mobilization Type Myofascial Release Intensity/Depth Superficial CS Body Location paraspinals Mobilization Type Rolling Intensity/Depth Moderate Body Position Supine superior Body Location L>R UT, LS, Suboccipital Mobilization Type Sustained Pressure Intensity/Depth Moderate Body Position Supine Comments w/rot & chin tuck ant Body Location L>R SCM & scalenes Mobilization Type Rolling,Sustained Pressure Intensity/Depth Moderate Body Position Supine Joint Mobilizations C spine Comments C 7 transverse R FM; upglide L C3 FM PT-OP-T Assessment and Plan Start: 09/05/23 17:32 Freq: Status: Active Protocol: Document 12/12/23 13:06 [facility] (Rec: 12/12/23 16:54 [facility] [id number]) Physical Therapy Assessment Goals ADL Short Term Goal (STG) Pt will be able to sleep through the night w/o waking up STG Duration achieved 10/28 Mcfp Goal (LTG) Pt will be able to perform all ADL's with no greater then 2 10 neck pain 10/28-06/16 12/04-inc pain w/gardening and biking noted LTG Duration Functional ability Short Term Goal (STG) Pt will dec Neck & Shoulder disability index score from a 11/50 to a 6/50 to facilitate integration of ADL 10/28- 12/04-n/t STG Duration 12/22 Mcfp Goal (LTG) Pt will dec Neck & Shoulder disability index score from a 11/50 to a 0/50 to integrate ADL's back into daily routine LTG Duration 02/06 ROM Short Term Goal (STG) Pt will be able to inc cervical ROM to 45 deg of motion B w/o inc in pain STG Duration achieved 10/28 Mcfp Goal (LTG) Pt will inc cervical ROM to 70 deg of motion B w/o inc in pain in order to drive safely 12/04-n/t about 60 deg B though today LTG Duration 02/06 Assessment Summary Assessment pt had improved flex after manual along w/less pain w/ext and Improved R rot but no change in AROM L rot but improved passively. cues needed w/exercises Physical Therapy Plan Frequency and Duration Frequency of Treatment 1x/Week Duration of treatment (weeks) 8 Plan of Care Start Date 12/05/23 Plan of Care End Date 02/07/24 Next Visit Focus/Plan Next Note Type Treatment Note Next Visit Plan focus on progression of L tspine and cervical rotation & cervical flex
--- NOTE | 2023-12-20 09:24 | PT.OTN ---
Current Diagnoses Cervicalgia (12/20/23) Paresthesia of skin (12/20/23) Physical Therapy Treatment Note PT-OP-A Visit Information Start: 09/05/23 17:32 Freq: Status: Active Protocol: Document 12/20/23 08:21 [facility] (Rec: 12/20/23 09:24 [facility] [id number]) Out-Patient Physical Therapy Visit Information Visit Information Visit Type Treatment Note Visit Start Time 08:22 Visit Stop Time 09:03 Visit Number 12 Number of FEED MANAGEMENT ADVISOR Visits 0 PT-OP-B Current Condition Start: 09/05/23 17:32 Freq: Status: Active Protocol: Document 09/11/23 08:17 JG (Rec: 09/11/23 17:23 JG [id number]) Current Condition History of Current Condition Onset Date June 2023 Current Complaints Neck pain, R UE tingling and JENSEN History of Current Condition She has a history of whiplash from falls and she has hit her head in the past with no reported concussions. She is a reported belly sleeper and has been having more issues with JENSEN recently due to her increased neck pain. Shes also reports tingiling in the Ulnar nerve. She does not stop herself from doing activites even with pain. She has stopped working out due to pain and being busy. She belivied that the pain started in June when she slept on it wrong and later helped her friend with yard work and the pain became unbearable. She uses tylonol and ibuprofen. The medication only provides short term relief. Treatment Goals Patient/Caregiver Goals Reduce neck pain and return to funtional activities Prior Functional Status Baseline Function- ADL's Independent Baseline Function- Mobility Independent Baseline Function- Other Independant with all functional activities PT-OP-C Subjective Start: 09/05/23 17:32 Freq: Status: Active Protocol: Document 12/20/23 08:21 [facility] (Rec: 12/20/23 09:24 [facility] [id number]) OP-PT Subjective Patient Comments Patient Comments Pt does feel like mm relaxor is not helping. Little more sore today in L lat neck. Is not getting pain in post neck as quickly when doing yard work. Can get through more work. PT-OP-J Posture/Palpation/Skin Start: 09/05/23 17:32 Freq: Status: Active Protocol: Document 09/11/23 08:17 (Rec: 09/11/23 17:23 [id number]) Posture Evaluation Position Standing Evaluation View Anterior Head/C-Spine Posture Flexed,Rotated Left T-Spine Posture Rotation Left,Increased Kyphosis Thorax Posture Neutral L-Spine Posture Neutral Scapula Posture (L) Winged,(R) Winged Palpation Assessment Location Cervical Palpation Location L Trapizius and R scalenes Palpation Findings Soft Tissue Tightness, Tenderness Palpation Details L>R was more tender and elevated Skin Assessment Other Assessments Skin Assessment Comments Sensation WNL B PT-OP-K Range of Motion Start: 09/05/23 17:32 Freq: Status: Active Protocol: Document 10/29/23 09:05 [facility] (Rec: 10/29/23 12:25 [facility] [id number]) Cervical Spine Range of Motion Cervical Spine Active Testing Position Sitting Flexion 46 Extension 63 Rotation Left 50 Rotation Right 62 Lateral Flexion Left 32 Lateral Flexion Right 30 Comments 53 deg trunk rot R, 40 L; pain w/cervical L rot PT-OP-L Special Tests Start: 09/05/23 17:32 Freq: Status: Active Protocol: Document 09/11/23 08:17 (Rec: 09/11/23 17:23 [id number]) Special Tests Cervical Spine Special Tests Vertebral Artery Test Results Postional screen negative Comments Auscultation of the heart and carotid Compression/distraction Test Results Test positive with inc pain with compression and dec pain with distraction PT-OP-Q Treatments Start: 09/05/23 17:32 Freq: Status: Active Protocol: Document 12/20/23 08:21 [facility] (Rec: 12/20/23 09:24 [facility] [id number]) Therapeutic Exercises Supine Exercises cervical DNF & lift Equipment Used towel roll under head Reps/Minutes 8 Comments verbal cues to perform slowly and tuck first then segmental lift breathing Reps/Minutes 1 min Comments pt self facilitation Prone Exercises plank Prone Exercise Name hands and knees Side bilateral Reps/Minutes 20 sec Comments cues neck Sidelying Exercises open book Side bilateral Reps/Minutes X5 Comments cues for inc ROM on L through thoracic Sitting Exercises ROM Sitting Exercise Name AROM neck stretching Sitting Exercise Name UT (SB), LS (look arm pit) Side bilateral Reps/Minutes 10 sec ea chin tuck Side bilateral Equipment Used L2 Reps/Minutes 2x8 Comments cues for elongate post neck and tuck chin Cervical isometrics Side bilateral Reps/Minutes 5 sec ea direction Standing Exercises wall posture Standing Exercise Name roll up w/90/90 ER Side bilateral Reps/Minutes 5 Manual Therapy Treatment Consent Patient gave verbal consent for manual Yes treatment Soft Tissue Mobilization cranial Body Location MFR cranial fascia post Mobilization Type Myofascial Release Intensity/Depth Superficial CS Body Location paraspinals Mobilization Type Rolling Intensity/Depth Moderate Body Position Supine superior Body Location R>L Suboccipital Mobilization Type Sustained Pressure Intensity/Depth Moderate Body Position Supine Comments w/rot & chin tuck ant Body Location L>R SCM & scalenes Mobilization Type Rolling,Sustained Pressure Intensity/Depth Moderate Body Position Supine Joint Mobilizations C spine Comments transverse R T3-4, 6 FM w/L rot T spine Comments transverse R T1-3 supine FM w/ rot PT-OP-T Assessment and Plan Start: 09/05/23 17:32 Freq: Status: Active Protocol: Document 12/20/23 08:21 [facility] (Rec: 12/20/23 09:24 [facility] [id number]) Physical Therapy Assessment Goals ADL Short Term Goal (STG) Pt will be able to sleep through the night w/o waking up STG Duration achieved 10/28 Preparation Supervisor Goal (LTG) Pt will be able to perform all ADL's with no greater then 2/ 10 neck pain 10/28-06/16 12/04-inc pain w/gardening and biking noted LTG Duration Functional ability Short Term Goal (STG) Pt will dec Neck & Shoulder disability index score from a 11/50 to a 6/50 to facilitate integration of ADL 10/28- 12/04-n/t STG Duration 12/22 Preparation Supervisor Goal (LTG) Pt will dec Neck & Shoulder disability index score from a 11/50 to a 0/50 to integrate ADL's back into daily routine LTG Duration 02/06 ROM Short Term Goal (STG) Pt will be able to inc cervical ROM to 45 deg of motion B w/o inc in pain STG Duration achieved 10/28 Preparation Supervisor Goal (LTG) Pt will inc cervical ROM to 70 deg of motion B w/o inc in pain in order to drive safely 12/04-n/t about 60 deg B though today LTG Duration 02/06 Assessment Summary Assessment Pt improving overall w/L rotation and flex w/manual. She does still lack more L thoracic rotation than R likely affecting cervical rotation. Good exercise performance Physical Therapy Plan Frequency and Duration Frequency of Treatment 1x/Week Duration of treatment (weeks) 8 Plan of Care Start Date 12/05/23 Plan of Care End Date 02/07/24 Next Visit Focus/Plan Next Note Type Progress Note Next Visit Plan focus on progression of L tspine and cervical rotation & cervical flex
--- NOTE | 2023-12-26 12:20 | PT.OTN ---
Current Diagnoses Cervicalgia (12/26/23) Paresthesia of skin (12/26/23) Physical Therapy Treatment Note PT-OP-A Visit Information Start: 09/05/23 17:32 Freq: Status: Active Protocol: Document 12/26/23 11:54 [facility] (Rec: 12/26/23 12:20 [facility] [id number]) Out-Patient Physical Therapy Visit Information Visit Information Visit Type Treatment Note Visit Start Time 09:52 Visit Stop Time 10:32 Visit Number 13 Number of MACHINE SIZER Visits 0 PT-OP-B Current Condition Start: 09/05/23 17:32 Freq: Status: Active Protocol: Document 09/11/23 08:17 JG (Rec: 09/11/23 17:23 JG [id number]) Current Condition History of Current Condition Onset Date June 2023 Current Complaints Neck pain, R UE tingling and JENSEN History of Current Condition She has a history of whiplash from falls and she has hit her head in the past with no reported concussions. She is a reported belly sleeper and has been having more issues with JENSEN recently due to her increased neck pain. Shes also reports tingiling in the Ulnar nerve. She does not stop herself from doing activites even with pain. She has stopped working out due to pain and being busy. She belivied that the pain started in June when she slept on it wrong and later helped her friend with yard work and the pain became unbearable. She uses tylonol and ibuprofen. The medication only provides short term relief. Treatment Goals Patient/Caregiver Goals Reduce neck pain and return to funtional activities Prior Functional Status Baseline Function- ADL's Independent Baseline Function- Mobility Independent Baseline Function- Other Independant with all functional activities PT-OP-C Subjective Start: 09/05/23 17:32 Freq: Status: Active Protocol: Document 12/26/23 11:54 [facility] (Rec: 12/26/23 12:20 [facility] [id number]) OP-PT Subjective Patient Comments Patient Comments pt reports overall doing well w/ROM today. Sat woke up and had to take flexeril during day d/t pain. Unsure why PT-OP-J Posture/Palpation/Skin Start: 09/05/23 17:32 Freq: Status: Active Protocol: Document 09/11/23 08:17 JG (Rec: 09/11/23 17:23 [id number]) Posture Evaluation Position Standing Evaluation View Anterior Head/C-Spine Posture Flexed,Rotated Left T-Spine Posture Rotation Left,Increased Kyphosis Thorax Posture Neutral L-Spine Posture Neutral Scapula Posture (L) Winged,(R) Winged Palpation Assessment Location Cervical Palpation Location L Trapizius and R scalenes Palpation Findings Soft Tissue Tightness, Tenderness Palpation Details L>R was more tender and elevated Skin Assessment Other Assessments Skin Assessment Comments Sensation WNL B PT-OP-K Range of Motion Start: 09/05/23 17:32 Freq: Status: Active Protocol: Document 10/29/23 09:05 [facility] (Rec: 10/29/23 12:25 [facility] [id number]) Cervical Spine Range of Motion Cervical Spine Active Testing Position Sitting Flexion 46 Extension 63 Rotation Left 50 Rotation Right 62 Lateral Flexion Left 32 Lateral Flexion Right 30 Comments 53 deg trunk rot R, 40 L; pain w/cervical L rot PT-OP-L Special Tests Start: 09/05/23 17:32 Freq: Status: Active Protocol: Document 09/11/23 08:17 (Rec: 09/11/23 17:23 [id number]) Special Tests Cervical Spine Special Tests Vertebral Artery Test Results Postional screen negative Comments Auscultation of the heart and carotid Compression/distraction Test Results Test positive with inc pain with compression and dec pain with distraction PT-OP-Q Treatments Start: 09/05/23 17:32 Freq: Status: Active Protocol: Document 12/26/23 11:54 [facility] (Rec: 12/26/23 12:20 [facility] [id number]) Therapeutic Exercises Supine Exercises cervical DNF & lift Equipment Used towel roll under head Reps/Minutes 8 Comments verbal cues to perform slowly and tuck first then segmental lift Prone Exercises plank Prone Exercise Name 1.hands and knees 2.hands and feet Side bilateral Reps/Minutes 20 sec ea Comments very min cues Sitting Exercises chin tuck Side bilateral Equipment Used L1 Reps/Minutes 12 Comments cues for elongate post neck and tuck chin Standing Exercises scap set Standing Exercise Name 1. shrug up, ER UE then scap scap 2. UE flex IR then add for set Side bilateral Reps/Minutes 8 ea Comments pt took video for home wall posture Standing Exercise Name roll up w/90/90 ER Side bilateral Reps/Minutes 5 Manual Therapy Treatment Consent Patient gave verbal consent for manual Yes treatment Soft Tissue Mobilization Thoracic Body Location L rhomboids & B lats Mobilization Type Rolling,Sustained Pressure Intensity/Depth Moderate Body Position Sidelying Comments w/scap patterns ant Body Location B SCM & scalenes Mobilization Type Rolling,Sustained Pressure Intensity/Depth Moderate Body Position Sidelying Comments w/scap patterns Joint Mobilizations ribs Body Position Sidelying Comments depression R w/scap patterns and breathing lower ribcage; depression L w/scap patterns and breathing mid ribcage; external torision rib 7 R FM w /scap patterns T spine Comments transverse L T7 FM w/scap patterns Neuro Re-Education Treatment Other Activities PNF Reps/Duration 10 min Comments irradiation from R pelvis ant elevation to R shoulder post dep progressed to sustained holds 2. rhythmic initiation R scap post depression 3. sustained holds R scap post dep 4. sustaiened holds R scap post dep w/pivot prone and modified pivot prone pattern 5. COI R scap post dep very small range PT-OP-T Assessment and Plan Start: 09/05/23 17:32 Freq: Status: Active Protocol: Document 12/26/23 11:54 [facility] (Rec: 12/26/23 12:20 [facility] [id number]) Physical Therapy Assessment Goals ADL Short Term Goal (STG) Pt will be able to sleep through the night w/o waking up STG Duration achieved 10/28 Usp Goal (LTG) Pt will be able to perform all ADL's with no greater then 2/ 10 neck pain 10/28-06/16 12/04-inc pain w/gardening and biking noted LTG Duration Functional ability Short Term Goal (STG) Pt will dec Neck & Shoulder disability index score from a 11/50 to a 6/50 to facilitate integration of ADL 10/28- 12/04-n/t STG Duration 12/22 Loss Mitigation Specialist Goal (LTG) Pt will dec Neck & Shoulder disability index score from a 1150 to a 050 to integrate ADL's back into daily routine LTG Duration 02/06 ROM Short Term Goal (STG) Pt will be able to inc cervical ROM to 45 deg of motion B w/o inc in pain STG Duration achieved 10/28 Loss Mitigation Specialist Goal (LTG) Pt will inc cervical ROM to 70 deg of motion B w/o inc in pain in order to drive safely 12/04-n/t about 60 deg B though today LTG Duration 02/06 Assessment Summary Assessment Pt had much improved R scap depression ROM and stability w /manual and PNF, but does have significant limit w/L scapular depression that did not resolve as much and will require further manual mobility. Physical Therapy Plan Frequency and Duration Frequency of Treatment 1x/Week Duration of treatment (weeks) 8 Plan of Care Start Date 12/05/23 Plan of Care End Date 02/07/24 Next Visit Focus/Plan Next Note Type Progress Note Next Visit Plan scapular PNF patterns
--- NOTE | 2024-03-18 09:33 | PT.OPDS ---
Current Diagnoses Cervicalgia (12/26/23) Paresthesia of skin (12/26/23) Visit Care Team Role Provider Type Anjali Dawson MD Attending Provider Physician Family Provider Primary Care Provider Referring Provider Specialty: Family Practice Address: [address] [place] [address], [facility] Email: [email or web address] Visit Number Visit Number 13 Discharge Summary PT-OP-B Current Condition Start: 09/05/23 17:32 Freq: Status: Active Protocol: Document 09/11/23 08:17 JG (Rec: 09/11/23 17:23 JG [id number]) Current Condition History of Current Condition Onset Date June 2023 Current Complaints Neck pain, R UE tingling and JENSEN History of Current Condition She has a history of whiplash from falls and she has hit her head in the past with no reported concussions. She is a reported belly sleeper and has been having more issues with JENSEN recently due to her increased neck pain. Shes also reports tingiling in the Ulnar nerve. She does not stop herself from doing activites even with pain. She has stopped working out due to pain and being busy. She belivied that the pain started in June when she slept on it wrong and later helped her friend with yard work and the pain became unbearable. She uses tylonol and ibuprofen. The medication only provides short term relief. Treatment Goals Patient/Caregiver Goals Reduce neck pain and return to funtional activities Prior Functional Status Baseline Function- ADL's Independent Baseline Function- Mobility Independent Baseline Function- Other Independant with all functional activities PT-OP-C Subjective Start: 09/05/23 17:32 Freq: Status: Active Protocol: Document 12/26/23 11:54 LR (Rec: 12/26/23 12:20 [facility] [id number]) OP-PT Subjective Patient Comments Patient Comments pt reports overall doing well w/ROM today. Sat woke up and had to take flexeril during day d/t pain. Unsure why PT-OP-J Posture/Palpation/Skin Start: 09/05/23 17:32 Freq: Status: Active Protocol: Document 09/11/23 08:17 JG (Rec: 09/11/23 17:23 JG [id number]) Posture Evaluation Position Standing Evaluation View Anterior Head/C-Spine Posture Flexed,Rotated Left T-Spine Posture Rotation Left,Increased Kyphosis Thorax Posture Neutral L-Spine Posture Neutral Scapula Posture (L) Winged,(R) Winged Palpation Assessment Location Cervical Palpation Location L Trapizius and R scalenes Palpation Findings Soft Tissue Tightness, Tenderness Palpation Details L>R was more tender and elevated Skin Assessment Other Assessments Skin Assessment Comments Sensation WNL B PT-OP-K Range of Motion Start: 09/05/23 17:32 Freq: Status: Active Protocol: Document 10/29/23 09:05 [facility] (Rec: 10/29/23 12:25 [facility] [id number]) Cervical Spine Range of Motion Cervical Spine Active Testing Position Sitting Flexion 46 Extension 63 Rotation Left 50 Rotation Right 62 Lateral Flexion Left 32 Lateral Flexion Right 30 Comments 53 deg trunk rot R, 40 L; pain w/cervical L rot PT-OP-L Special Tests Start: 09/05/23 17:32 Freq: Status: Active Protocol: Document 09/11/23 08:17 (Rec: 09/11/23 17:23 [id number]) Special Tests Cervical Spine Special Tests Vertebral Artery Test Results Postional screen negative Comments Auscultation of the heart and carotid Compression/distraction Test Results Test positive with inc pain with compression and dec pain with distraction PT-OP-T Assessment and Plan Start: 09/05/23 17:32 Freq: Status: Active Protocol: Document 03/18/24 09:32 [facility] (Rec: 03/18/24 09:33 [facility] [id number]) Physical Therapy Assessment Goals ADL Short Term Goal (STG) Pt will be able to sleep through the night w/o waking up STG Duration achieved 10/28 [employer] Goal (LTG) Pt will be able to perform all ADL's with no greater then 2/ 10 neck pain 10/28-06/16 12/04-inc pain w/gardening and biking noted LTG Duration Functional ability Short Term Goal (STG) Pt will dec Neck & Shoulder disability index score from a to a to facilitate integration of ADL 10/28- 12/04-n/t STG Duration 12/22 Atg [employer] Developer Goal (LTG) Pt will dec Neck & Shoulder disability index score from a to a 050 to integrate ADL's back into daily routine LTG Duration 02/06 ROM Short Term Goal (STG) Pt will be able to inc cervical ROM to 45 deg of motion B w/o inc in pain STG Duration achieved 10/28 Atg [employer] Developer Goal (LTG) Pt will inc cervical ROM to 70 deg of motion B w/o inc in pain in order to drive safely 12/04-n/t about 60 deg B though today LTG Duration 02/06 Assessment Summary Assessment Pt made progress w/PT then had break in care d/t awaiting auth, then difficultly getting onto schedule, then d/t PT sickness and pt vacation and unable to take [facility] appts. Pt Contacted by schedulers and Nalini states that she feels that she has achieved as much as she can with therapy at this time and is ready for a discharge. Patient has canceled remaining visit.DC d/ t no longer attending PT Physical Therapy Plan Discharge Physical Therapy Discharge Reasons No Longer Attending PT
== END 2024-03-26 15:00 | disposition home or self-care (01) ==
LOC: PHYS 09:45
PROVIDERS: Family Provider Family Medicine; PCP Family Medicine; Referring Provider Family Medicine; Visit Provider Family Medicine
DX: M54.2 Cervicalgia (principal); R20.2 Paresthesia of skin
CPT/HCPCS: 97110; 97112; 97140; 97162; 97530

== ENCOUNTER → 2024-02-04 09:18 | Outpatient (CLI) | payer OTHER, SELFPAY ==
--- NOTE | 2024-02-04 09:19 | DI.MG.S_ITS ---
BILATERAL DIGITAL SCREENING MAMMOGRAM 3D/2D WITH CAD: 02/04/2024 CLINICAL: Routine screening. Family history of breast cancer. Comparison is made to exams dated: 01/22/2023 mammogram, 01/09/2022 mammogram, and 12/30/2020 mammogram - [facility]. The breasts are heterogeneously dense, which may obscure small masses (category c / 51-75% glandular tissue). Current study was also evaluated with a Computer Aided Detection (CAD) system. There are biopsy clips in the left breast. No significant masses, calcifications, or other findings are seen in either breast. There has been no significant interval change. IMPRESSION: BENIGN There is no mammographic evidence of malignancy. A 1 year screening mammogram is recommended. Based on the Tyrer Cuzick model (a risk assessment model) the patient's lifetime risk is 11.4% and her 10 year risk is 4.8%. According to the ACR, ACS, and NCCN guidelines, an annual breast MRI exam along with mammogram is recommended if the patient's lifetime risk is 20% or greater. This exam was interpreted at Station ID: [id number]. NOTE: For mammograms, a report in lay terms will be sent to the patient. Approximately 15% of breast malignancies will not be visualized mammographically. In the management of a palpable breast mass, a negative mammogram must not discourage biopsy of a clinically suspicious lesion. Electronically Signed By: Eder hand/lynn:02/04/2024 13:51:04 letter sent: Normal Exam ACR BI-RADS Category 2: Benign
== END ==
PROVIDERS: Family Provider Family Medicine; PCP Family Medicine; Referring Provider Family Medicine; Visit Provider Family Medicine
DX: Z12.31 Encounter for screening mammogram for malignant neoplasm of breast (principal); Z80.3 Family history of malignant neoplasm of breast; R92.333 Mammographic heterogeneous density, bilateral breasts
CPT/HCPCS: 77063; 77067

== ENCOUNTER → 2025-02-19 12:51 | Outpatient (CLI) | payer OTHER, SELFPAY ==
--- NOTE | 2025-02-19 12:52 | DI.MG.S_ITS ---
MM screening mammo BI: 02/19/2025. BI-RADS: 2 CLINICAL: 64-year old female for bilateral screening mammogram. Tyrer-Cuzick lifetime risk of 11.8%. No personal or first-degree family history of breast cancer. Current reported family history of breast cancer: paternal grandmother and paternal aunt's daughter. The patient had a prior left breast biopsy. PRIOR EXAMS 02/04/2024, 01/22/2023, 01/09/2022, 12/30/2020. MAMMOGRAPHY TECHNIQUE: 2D and 3D (tomosynthesis) digital mammographic views obtained, with additional images as needed for full coverage. Current study was also evaluated with a Computer Aided Detection (CAD) system. DENSITY C. The breasts are heterogeneously dense, which may obscure small masses. MAMMOGRAPHY FINDINGS Right: No suspicious mass, asymmetry, microcalcification, or other abnormality seen. Left: Biopsy markers present on the left. There are no suspicious masses, calcifications, or other findings in the breast. IMPRESSION: Right * No evidence of malignancy. Left * No evidence of malignancy with benign findings. RECOMMENDATIONS Bilateral * Annual screening mammography. OVERALL ASSESSMENT CATEGORY BI-RADS-2: Benign. The [employer] recommends annual screening mammography beginning at age 40 for women with average risk of breast cancer. ELECTRONICALLY SIGNED: Luisa Morton M.D. on 02/22/2025 at 04:23:01 PM PT Interpreting Station ID: [id number]
== END ==
PROVIDERS: Family Provider Family Medicine; PCP Family Medicine; Referring Provider Family Medicine; Visit Provider Family Medicine
DX: Z12.31 Encounter for screening mammogram for malignant neoplasm of breast (principal); R92.333 Mammographic heterogeneous density, bilateral breasts; Z80.3 Family history of malignant neoplasm of breast
CPT/HCPCS: 77063; 77067